=== PATIENT | male | born 1990 | race Caucasian/White ===

== ENCOUNTER 2024-11-02 21:28 | Emergency (ER) | payer OTHER, SELFPAY ==
--- OUTSIDE RECORDS SUMMARY | 2024-11-02 21:31 | XMS_ITS | Clinical Summary ---
Author Organization [facility] Address [place], [place] [address] Care Team Providers Care Narrow Fabric Calenderer Name Role Phone Kenzie Rivera NP Primary Care Provider [phone] Allergies No known active allergies Medications lisinopril-hydr ochlorothiazide , 20-25 mg, (PRINZIDE, ZESTORETIC) 20-25 mg per tabletIndicatio ns:Hypertension Take 1 Tablet by mouth once daily. 90 Tablet 3 4 Active CPAPIndications :SHARAN (obstructive sleep apnea) CPAP machine for home use at pressure 5-20, choice of mask, lifetime length of need, daily use. 12/17/23 HST abbi 33.2 idania 58% borderline [facility] [place] please with YANIRA to follow about 2-3 weeks after start 1 Each 4 Active Active Problems Problem Noted Date Diagnosed Date Premature ejaculation, lifelong, generalized, se elias 09/13/2015 Mild intermittent asthma without complication Hypertension 08/21/2015 Morbid obesity due to excess calories 08/21/2015 Resolved Problems Problem Noted Date Diagnosed Date Resolved Date Erectile dysfunction 08/21/2015 024 Encounters Date Type Department Care Team Description 08/03/2024 Refill [facility] [address] [place] [address] Arline Sawyer NP Refill Request from Last 3 Months Immunizations Name Administration Dates Next Due Influenza, IIV3 (Age >=3 years) 08/07/2006 MMR 08/01/2003 Td (Age >=7 Years) 08/01/2003 Family History Medical History Relation Name Comments Diabetes Father Hypertension Father Cancer Mother Lung Hypertension Mother Relation Name Status Comments Father Mother Social History Tobacco Use Types Packs/Day Years Used Date Smoking Tobacco: Never Smokeless Tobacco: Never Tobacco Cessation:Counseling Given: Yes Alcohol Use Standard Drinks/Week Comments Yes 0 (1 standard drink = 0.6 oz pur e alcohol) less then 1 drink per week PHQ-2 Answer Date Recorded PHQ-2 Score 2 12/20/2018 Social Connections Answer Date Recorded Frequency of Communication with Friends and Fami ly Not on file 08/19/2022 Financial Resource Strain Answer Date R ecorded Difficulty of Paying Living Expenses Not on file 10/20/2021 Difficulty of Paying Living Expenses Not on file 10/20/2021 Sex and Gender Information Value Date Recorded Sex Assigned at Not on file Legal Sex Male 5:25 AM ROLLER STITCHER Gender Identity Not on file Sexual Orientation Not on file 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 Not on file Not on file Not on file Obstetrics History Last Filed Vital Signs Vital Sign Reading Time Taken Comments Blood Pressure 138/80 11/03/2023 1:01 PM ROLLER STITCHER Pulse 102 11/03/2023 1:01 PM ROLLER STITCHER Temperature 36.9 C (98.4 F) 10/23/2019 7:59 AM ROLLER STITCHER Respiratory Rate 16 11/03/2023 1:01 PM ROLLER STITCHER Oxygen Saturation 98% 11/03/2023 1:01 PM ROLLER STITCHER Inhaled Oxygen Concentration - - Weight 179.6 kg (396 lb) 11/03/2023 1:01 PM ROLLER STITCHER Height 185.4 cm (6' 1) 11/03/2023 1:01 PM ROLLER STITCHER Body Mass Index 52.25 11/03/2023 1:01 PM ROLLER STITCHER Plan of Treatment Health Maintenance Due Date Last Done Comments Tdap 2002 HIV for age 15-65 2006 Hepatitis C screening for age 18-79 2009 Tetanus booster 08/01/2013 08/01/2003 Depression screening for age 12+ 02/09/2019 02/09/2018, 06/21/2016 COVID-19 vaccine series ( season) 2024 03/08/2021, 02/08/2021 Influenza for age 9-49 06/20/2024 08/07/2006 BMI (ht and wt on same day) for age 18+ 11/03/2024 11/03/2023, 08/19/2022, 10/23/2019, Additional history exists Pneumococcal series for age 6-49 Aged Out No longer eligible based on patient's age to complete this topic Insurance [employer] Care Teams [employer] Calenderer Relationship Specialty Start Date End Date Kenzie Rivera NP [address] [place] [id number] PCP - General Nurse Practitioner - Family 11/03/23
[2024-11-02 21:43] VITALS: BP 185/90; PULSE 89; RESP 18; TEMP 36.6; O2SAT 99; BMI 46.2
--- NOTE | 2024-11-02 21:46 | CRLHL7_ITS ---
For Patients: As a result of the Century Cures Act, medical imaging exams and procedure reports are released immediately into your electronic medical record. You may view this report before your referring provider. If you have questions, please contact your health care provider. INDICATION: Flank pain, vomiting. TECHNIQUE: CT abdomen and pelvis without contrast. COMPARISON: None. FINDINGS: Lower chest: Unremarkable. Liver: Hepatic steatosis. Gallbladder and bile ducts: No stones or inflammation. No biliary ductal dilatation. Spleen: Normal in size. Adrenal glands: Normal in size. No nodules. Pancreas: No inflammation. Kidneys: 8 mm calculus in the distal left ureter. Moderate left hydroureteronephrosis. Mild left periureteric stranding. 2 mm nonobstructive left renal calculus. Right renal cysts. GI tract: Normal in caliber. No evidence of obstruction. Normal appendix. Lymph nodes: No lymphadenopathy. Vasculature: Abdominal aorta is normal in caliber. Abdominal wall/Omentum/Peritoneum: Unremarkable. No free air or significant free fluid. Pelvis: Unremarkable. Bones: Degenerative changes. IMPRESSION: 1. 8 mm distal left ureteral calculus with moderate upstream hydroureteronephrosis. 2. Mild left periureteric stranding, nonspecific. Recommend correlation with urinalysis to evaluate for ascending urinary tract infection. 3. 2 mm left nonobstructive nephrolithiasis. 4. Hepatic steatosis. Please note that all CT scans at this facility use dose modulation, iterative reconstruction, and/or weight-based dosing when appropriate to reduce radiation dose to as low as reasonably achievable. Dictated by Ryan Sidhu MD @ 11/02/2024 10:55:11 PM (Electronically Signed)
[2024-11-02 21:50] LABS: Appearance Urine Clear (Clear); Bilirubin Urine Negative (Negative); Blood Urine 3+ (Negative); Color Urine Yellow (Yellow); Glucose Urine Negative (Negative); Ketones Urine Negative (Negative); Leukocyte Esterase Urine Negative (Negative); Nitrite Urine Negative (Negative); Protein Urine 2+ (Negative); Specific Gravity Urine >= 1.030 (1.000-1.030); pH Urine 6.5 (5.0-8.5)
--- NOTE | 2024-11-02 21:52 | ED.GENADULT ---
HPI - General Adult General Date Seen: 11/02/24 <Nicolas Fink MD - Last Filed: 11/14/24 15:50> Chief complaint: Flank Pain <Nicolas Fink MD - Last Filed: 11/14/24 15:50> Stated complaint: Left side flank pain, vomitting <Nicolas Fink MD - Last Filed: 11/14/24 15:50> Time Seen by Provider: 11/02/24 21:51 <Nicolas Fink MD - Last Filed: 11/14/24 15:50> History of Present Illness HPI narrative: Very pleasant 34-year-old gentleman presenting to the ER [facility] with his with concern for left flank pain and nausea. He is generally healthy except for elevated BMI. No regular medications. No medication allergies. He has no history of kidney stones or urinary problems. At about 7:00 p.m. [facility] while he was fixing dinner he began to feel some pain in his left low back/left flank. Initially fairly mild but then a little while later abruptly became much worse. It began to wrap around into his left lower quadrant along the left groin (but not into the left testicle). It became quite intense and made him nauseous. He had 1 episodes of nonbilious, nonbloody emesis. He became sweaty and dizzy because of the pain. He is not running a fever. No known trauma. No injury. No rash. No history of kidney stones. <Nicolas Fink MD - Last Filed: 11/14/24 15:50> Related Data Home medications: Home Medications ?Medication ?Instructions ?Recorded ?Confirmed No Known Home Medications 11/02/24 11/02/24 <Nicolas Fink MD - Last Filed: 11/14/24 15:50> Allergies/adverse reactions: Allergies Allergy/AdvReac Type Severity Reaction Status Date / Time No Known Drug Allergies Allergy Verified 11/02/24 21:45 <Nicolas Fink MD - Last Filed: 11/14/24 15:50> [facility] Medical History: Medical History (Updated 11/02/24 @ 23:59 by Hanna Arreola MD) HTN (hypertension) ?I10 - Essential (primary) hypertension (ICD-10) <Nicolas Fink MD - Last Filed: 11/14/24 15:50> Surgical History: Surgical History (Updated 11/02/24 @ 22:11 by Gene Meehan RN) No significant past surgical history <Nicolas Fink MD - Last Filed: 11/14/24 15:50> Social History: Social History Smoking Status: Never smoker Second hand tobacco smoke exposure: No How often do you have a drink containing alcohol: never AUDIT-C Alcohol total score: 0 Non-prescribed substance use: denies use <Nicolas Fink MD - Last Filed: 11/14/24 15:50> Exam Narrative: Exam Narrative: Constitutional: Appears well-developed and well-nourished. Alert. Conversant. Non toxic. HENT: Head: Atraumatic. Nose: Nose normal. Mouth/Throat: Oral mucosa is clear and moist. no trismus Eyes: Conjunctivae normal. EOM normal. Pupils equal, round, and reactive to light. No scleral icterus. Neck: Normal range of motion. Neck supple. No tracheal deviation present. Cardiovascular: Normal rate, regular rhythm. No gallop. No friction rub. No murmur heard. Pulmonary/Chest: Effort normal. No stridor. No respiratory distress. No wheezes. No rales. No rhonchi . No lower rib cage tenderness. Abdominal: Soft. Bowel sounds normal. No distension. No mass. Mild left lower quadrant and left lower CVA tenderness. No rash. No bruising No rebound. No guarding. No tenderness along the proximal thigh or inguinal ligament. Musculoskeletal: RUE: Normal range of motion. No tenderness. No deformity LUE: Normal range of motion. No tenderness. No deformity RLE: Normal range of motion. No edema. No tenderness. No deformity LLE: Normal range of motion. No edema. No tenderness. No deformity Neurological: Alert and oriented to person, place, and time. Normal strength. CN II-VII intact. No sensory deficit. GCS eye subscore is 4. GCS verbal subscore is 5. GCS motor subscore is 6. Normal coordination Skin: Skin is warm and dry. No rash noted. No pallor. Normal capillary refill. Psychiatric: Normal mood. Normal affect. <Nicolas Fink MD - Last Filed: 11/14/24 15:50> Const: Vital Signs, click to edit/add: Vital Signs - 24 hr 11/02/24 21:43 11/02/24 21:55 11/02/24 23:23 Temperature 97.8 F 97.8 F Pulse Rate [Right Pulse Oximeter] 89 Respiratory Rate 18 Blood Pressure [Le ft Upper Arm] 185/90 H Pulse Oximetry 99 99 Oxygen Delivery Me thod Room Air <Nicolas Fink MD - Last Filed: 11/14/24 15:50> Vital Signs, click to edit/add: Vital Signs - 24 hr 11/02/24 21:43 11/02/24 21:55 11/02/24 23:23 Temperature 97.8 F 97.8 F Pulse Rate [Right Pulse Oximeter] 89 Respiratory Rate 18 Blood Pressure [Le ft Upper Arm] 185/90 H Pulse Oximetry 99 99 Oxygen Delivery Me thod Room Air <Hanna Arreola MD - Last Filed: 11/03/24 00:00> Course Reevaluation(s) Time of Reevaluation #1: 22:16 <Hanna Arreola MD - Last Filed: 11/03/24 00:00> Reevaluation #1: Patient back from CT, pain has improved with Toradol. Note that he has hematuria on the UA, await CT imaging. <Hanna Arreola MD - Last Filed: 11/03/24 00:00> Time of Reevaluation #2: 23:07 <Hanna Arreola MD - Last Filed: 11/03/24 00:00> Reevaluation #2: Reviewed CT report with patient, unfortunately there is an 8 mm stone. We discussed that based on size, this is unlikely to pass on its own. He is comfortable right now with the IV Toradol. He will let us know if he is having increasing pain. We will contact facilities to see if we might be able to transfer him for definitive urologic treatment. <Hanna Arreola MD - Last Filed: 11/03/24 00:00> Time of Reevaluation #3: 23:52 <Hanna Arreola MD - Last Filed: 11/03/24 00:00> Reevaluation #3: Have reviewed with patient that there are no beds with Urology capacity in any of our surrounding institutions. His pain is returning mildly, will give him another 15 mg IV Toradol. Discussed options with him. They would like to try outpatient management and will follow up in clinic. I have discussed with him it may be extremely difficult to get into Urology in a timely fashion outpatient. I do not have Urology available here and they do understand that. Their insurance prefers [facility]. Will push his CT down to [facility] in case he does end up in their ER eventually. We did discuss signs and symptoms for return, certainly if he has a fever with active kidney stone not explained by other etiologies, this is a surgical emergency. He understands that this 8 mm stone is unlikely to pass on its own. Both of his parents have reportedly had kidney stones. He will be sent with some Toradol, Zofran, few tablets of oxycodone to follow up in clinic tomorrow for getting scheduled with Urology. Otherwise, if worsening or concerns, discussed proceeding to facility where there is Urology. We are always happy to help him here but we are likely to be in the same status conceivably at least short term. Have provided for tablets of oxycodone 5 mg, 20 tablets of Toradol and 10 tablets of Zofran 0DT from [place]. <Hanna Arreola MD - Last Filed: 11/03/24 00:00> Vital Signs Vital signs: Initial Vital Signs Temperature 97.8 F 11/02/24 21:43 Temperature Source Temporal Artery Scan 11/02/24 21:43 Pulse Rate 89 11/02/24 21:43 Respiratory Rate 18 11/02/24 21:43 Blood Pressure 185/90 H 11/02/24 21:43 Blood Pressure Mean 121 H 11/02/24 21:43 Blood Pressure Position Sitting 11/02/24 21:43 Pulse Oximetry 99 11/02/24 21:43 Oxygen Delivery Method Room Air 11/02/24 21:43 Vital Signs Temperature 97.8 F 11/02/24 21:43 Pulse Rate 89 11/02/24 21:43 Respiratory Rate 18 11/02/24 21:43 Blood Pressure 185/90 H 11/02/24 21:43 Pulse Oximetry 99 11/02/24 21:43 Oxygen Delivery Method Room Air 11/02/24 21:43 Temperature 97.8 F 11/03/24 00:04 Pulse Rate 85 11/03/24 00:04 Respiratory Rate 18 11/03/24 00:04 Blood Pressure 165/80 H 11/03/24 00:04 Pulse Oximetry 99 11/03/24 00:03 Oxygen Delivery Method Room Air 11/03/24 00:03 <Nicolas Fink MD - Last Filed: 11/14/24 15:50> Initial Vital Signs Temperature 97.8 F 11/02/24 21:43 Temperature Source Temporal Artery Scan 11/02/24 21:43 Pulse Rate 89 11/02/24 21:43 Respiratory Rate 18 11/02/24 21:43 Blood Pressure 185/90 H 11/02/24 21:43 Blood Pressure Mean 121 H 11/02/24 21:43 Blood Pressure Position Sitting 11/02/24 21:43 Pulse Oximetry 99 11/02/24 21:43 Oxygen Delivery Method Room Air 11/02/24 21:43 Vital Signs Temperature 97.8 F 11/02/24 21:43 Pulse Rate 89 11/02/24 21:43 Respiratory Rate 18 11/02/24 21:43 Blood Pressure 185/90 H 11/02/24 21:43 Pulse Oximetry 99 11/02/24 21:43 Oxygen Delivery Method Room Air 11/02/24 21:43 Temperature 97.8 F 11/03/24 00:04 Pulse Rate 85 11/03/24 00:04 Respiratory Rate 18 11/03/24 00:04 Blood Pressure 165/80 H 11/03/24 00:04 Pulse Oximetry 99 11/03/24 00:03 Oxygen Delivery Method Room Air 11/03/24 00:03 <Hanna Arreola MD - Last Filed: 11/03/24 00:00> Medications Administered Medications: Discontinued Medications Generic Name Dose Route Start Last Admin Trade Name Freq PRN Reason Stop Dose Admin Sodium Chloride 500 mls @ 500 mls/hr 11/02/24 21:46 11/02/24 23:23 0.9 % Sodium Chloride 500 Ml IV 11/02/24 22:45 Infused .Q1H ONE Infusion Ketorolac Tromethamine 15 mg 11/02/24 21:46 11/02/24 21:56 Ketorolac 15 Mg/Ml Inj IVP 11/02/24 21:47 15 mg ONCE ONE Administration Ketorolac Tromethamine 15 mg 11/02/24 23:52 11/02/24 23:56 Ketorolac 15 Mg/Ml Inj IVP 11/02/24 23:53 15 mg ONCE ONE Administration Ondansetron HCl 4 mg 11/02/24 21:46 11/02/24 21:57 Ondansetron 2 Mg/Ml Inj IVP 11/02/24 21:47 4 mg ONCE ONE Administration <Nicolas Fink MD - Last Filed: 11/14/24 15:50> Discontinued Medications Generic Name Dose Route Start Last Admin Trade Name Anton PRN Reason Stop Dose Admin Sodium Chloride 500 mls @ 500 mls/hr 11/02/24 21:46 11/02/24 23:23 0.9 % Sodium Chloride 500 Ml IV 11/02/24 22:45 Infused .Q1H ONE Infusion Ketorolac Tromethamine 15 mg 11/02/24 21:46 11/02/24 21:56 Ketorolac 15 Mg/Ml Inj IVP 11/02/24 21:47 15 mg ONCE ONE Administration Ketorolac Tromethamine 15 mg 11/02/24 23:52 11/02/24 23:56 Ketorolac 15 Mg/Ml Inj IVP 11/02/24 23:53 15 mg ONCE ONE Administration Ondansetron HCl 4 mg 11/02/24 21:46 11/02/24 21:57 Ondansetron 2 Mg/Ml Inj IVP 11/02/24 21:47 4 mg ONCE ONE Administration <Hanna Arreola MD - Last Filed: 11/03/24 00:00> Medical Decision Making [facility] Narrative Medical decision making narrative: This patient presents with left flank and left lower quadrant flank pain that began fairly abruptly this evening while he was fixing dinner.. Differential Diagnosis considered includes: Ureterolithiasis, UTI, pyelonephritis, AAA, colitis, diverticulitis, volvulus, appendicitis, among others. I have ordered labs and imaging. Discussed with my partner Dr. Nur. she will follow-up on the test results. <Nicolas Fink MD - Last Filed: 11/14/24 15:50> Lab Data Lab results reviewed: Yes I reviewed the patient's lab results <Hanna Arreola MD - Last Filed: 11/03/24 00:00> Labs: Lab Results 11/02/24 11/02/24 Range/Units 21:40 22:05 WBC 10.18 (4.50-11.00) K/uL RBC 5.24 (4.30-5.90) m/uL Hgb 14.4 (13.5-17.5) gm/dL Hct 45.4 (37.0-53.0) % MCV 87 (80-100) fL MCH 28 (26-34) pg MCHC 32 (32-36) gm/dL RDW Coeff of Rik 13.1 (11.5-15.5) % Plt Count 231 (140-440) K/uL Neut % (Auto) 72.3 H (42.0-72.0) % Lymph % (Auto) 15.1 L (20-44) % [place] % (Auto) 9.5 (0.0-11.0) % Eos % (Auto) 2.4 (0.0-7.0) % Baso % (Auto) 0.4 (0.0-3.0) % Neut # (Auto) 7.40 H (1.7-7.0) K/uL Lymph # (Auto) 1.50 (0.90-2.90) K/uL [place] # (Auto) 1.00 H (0.00-0.90) K/UL Eos # (Auto) 0.24 (0.00-0.50) K/uL Baso # (Auto) 0.04 (0.00-0.30) K/uL Abs Immat Gran (auto) 0.03 (0.00-0.30) K/uL Imm/Tot Granulo (auto) 0.3 % Sodium 138 (135-149) mmol/L Potassium 3.6 (3.6-5.1) mmol/L Chloride 103 (96-114) mmol/L Carbon Dioxide 27 (20-32) mmol/L Anion Gap 8 (7-15) mEq/L BUN 17 (5-24) mg/dL Creatinine 1.0 (0.5-1.5) mg/dL Estimated Creat Clear 118.74 Estimated GFR 102 ml/min Glucose 182 H (60-115) mg/dL Calcium 8.7 (8.4-10.6) mg/dL Lipase 143 (23-300) U/L Urine Color Yellow (Yellow) Urine Appearance Clear (Clear) Urine pH 6.5 (5.0-8.5) Ur Specific [place] >= 1.030 (1.000-1.030) Urine Protein 2+ A (Negative) Urine Glucose (UA) Negative (Negative) Urine Ketones Negative (Negative) Urine Blood 3+ A (Negative) Urine Nitrite Negative (Negative) Urine Bilirubin Negative (Negative) Urine Urobilinogen 1.0 (0.2-1.0) Ur Leukocyte Esterase Negative (Negative) Urine RBC 10-25 A (0-2) Urine WBC 5-10 A (0-5) Ur Squamous Epith Cells Few (None-Few) Calcium Oxalate Crystal Few A (None) Urine Bacteria Few A (None) <Nicolas Fink MD - Last Filed: 11/14/24 15:50> Lab Results 11/02/24 11/02/24 Range/Units 21:40 22:05 WBC 10.18 (4.50-11.00) K/uL RBC 5.24 (4.30-5.90) m/uL Hgb 14.4 (13.5-17.5) gm/dL Hct 45.4 (37.0-53.0) % MCV 87 (80-100) fL MCH 28 (26-34) pg MCHC 32 (32-36) gm/dL RDW Coeff of Rik 13.1 (11.5-15.5) % Plt Count 231 (140-440) K/uL Neut % (Auto) 72.3 H (42.0-72.0) % Lymph % (Auto) 15.1 L (20-44) % [place] % (Auto) 9.5 (0.0-11.0) % Eos % (Auto) 2.4 (0.0-7.0) % Baso % (Auto) 0.4 (0.0-3.0) % Neut # (Auto) 7.40 H (1.7-7.0) K/uL Lymph # (Auto) 1.50 (0.90-2.90) K/uL [place] # (Auto) 1.00 H (0.00-0.90) K/UL Eos # (Auto) 0.24 (0.00-0.50) K/uL Baso # (Auto) 0.04 (0.00-0.30) K/uL Abs Immat Gran (auto) 0.03 (0.00-0.30) K/uL Imm/Tot Granulo (auto) 0.3 % Sodium 138 (135-149) mmol/L Potassium 3.6 (3.6-5.1) mmol/L Chloride 103 (96-114) mmol/L Carbon Dioxide 27 (20-32) mmol/L Anion Gap 8 (7-15) mEq/L BUN 17 (5-24) mg/dL Creatinine 1.0 (0.5-1.5) mg/dL Estimated Creat Clear 118.74 Estimated GFR 102 ml/min Glucose 182 H (60-115) mg/dL Calcium 8.7 (8.4-10.6) mg/dL Lipase 143 (23-300) U/L Urine Color Yellow (Yellow) Urine Appearance Clear (Clear) Urine pH 6.5 (5.0-8.5) Ur Specific [place] >= 1.030 (1.000-1.030) Urine Protein 2+ A (Negative) Urine Glucose (UA) Negative (Negative) Urine Ketones Negative (Negative) Urine Blood 3+ A (Negative) Urine Nitrite Negative (Negative) Urine Bilirubin Negative (Negative) Urine Urobilinogen 1.0 (0.2-1.0) Ur Leukocyte Esterase Negative (Negative) Urine RBC 10-25 A (0-2) Urine WBC 5-10 A (0-5) Ur Squamous Epith Cells Few (None-Few) Calcium Oxalate Crystal Few A (None) Urine Bacteria Few A (None) <Hanna Arreola MD - Last Filed: 11/03/24 00:00> Imaging Data CT scan - abdomen: Attestation: I have reviewed the pertinent imaging results. <Hanna Arreola MD - Last Filed: 11/03/24 00:00> Radiologist's impression: Patient: NAINA RONQUILLO Facility:?[facility] Patient ID:?[id number] Site Patient ID:?[id number]. Site :?[id number] Study:?CT-Abdomen/Pelvis W/O-11/02/2024 10:13:58 PM Ordering Physician:Karissa Valenzuela Final Report: INDICATION: Flank pain, vomiting. TECHNIQUE: CT abdomen and pelvis without contrast. COMPARISON: None. FINDINGS: Lower chest: Unremarkable. Liver: Hepatic steatosis. Gallbladder and bile ducts: No stones or inflammation. No biliary ductal dilatation. Spleen: Normal in size. Adrenal glands: Normal in size. No nodules. Pancreas: No inflammation. Kidneys: 8 mm calculus in the distal left ureter. Moderate left hydroureteronephrosis. Mild left periureteric stranding. 2 mm nonobstructive left renal calculus. Right renal cysts. GI tract: Normal in caliber. No evidence of obstruction. Normal appendix. Lymph nodes: No lymphadenopathy. Vasculature: Abdominal aorta is normal in caliber. Abdominal wall/Omentum/Peritoneum: Unremarkable. No free air or significant free fluid. Pelvis: Unremarkable. Bones: Degenerative changes. IMPRESSION: 1. 8 mm distal left ureteral calculus with moderate upstream hydroureteronephrosis. 2. Mild left periureteric stranding, nonspecific. Recommend correlation with urinalysis to evaluate for ascending urinary tract infection. 3. 2 mm left nonobstructive nephrolithiasis. 4. Hepatic steatosis. Please note that all CT scans at this facility use dose modulation, iterative reconstruction, and/or weight-based dosing when appropriate to reduce radiation dose to as low as reasonably achievable. Dictated by Ryan Sidhu MD @ 11/02/2024 10:55:11 PM (Electronic Signature) <Hanna Arreola MD - Last Filed: 11/03/24 00:00> Discharge Plan Discharge Clinical Impression: Renal colic on left side, Urinary tract obstruction due to kidney stone <Nicolas Fink MD - Last Filed: 11/14/24 15:50> Patient Disposition: Home, Self-Care <Nicolas Fink MD - Last Filed: 11/14/24 15:50> Condition: Stable <Nicolas Fink MD - Last Filed: 11/14/24 15:50> Instructions: Kidney Stones (ED), Renal Colic (ED) <Nicolas Fink MD - Last Filed: 11/14/24 15:50> Additional Instructions: Can try Tylenol 1000 mg 3 times a day baseline for pain. Use the Toradol as next here for pain. Have written for few tablets of oxycodone for severe pain. Use Zofran for nausea. Need to push fluids. You absolutely need to follow up in clinic tomorrow to get a Urology referral. If your pain is uncontrolled, developed fever not explained by other etiologies, have uncontrolled vomiting despite medications, need emergent re-evaluation. If the kidney stone does become infected, this is a surgical emergency and you will need to see urology emergently. <Nicolas Fink MD - Last Filed: 11/14/24 15:50> Activity Level: Activity as Tolerated <Nicolas Fink MD - Last Filed: 11/14/24 15:50> Activity as Tolerated <Hanna Arreola MD - Last Filed: 11/03/24 00:00> Prescriptions: No Action No Known Home Medications <Nicolas Fink MD - Last Filed: 11/14/24 15:50> Follow Up/Referrals: Provider,Not a Local [Primary Care Provider] - <Nicolas Fink MD - Last Filed: 11/14/24 15:50> Stand Alone Forms: [employer] Info Instructions <Nicolas Fink MD - Last Filed: 11/14/24 15:50>
[2024-11-02 21:55] VITALS: O2SAT 99
[2024-11-02] MEDS: KETOROLAC 15 MG/ML inj IVP ×2 (21:56→23:56)
[2024-11-02] MEDS: 0.9 % SODIUM CHLORIDE 500 ML 500 ML IV (21:57)
[2024-11-02] MEDS: ONDANSETRON 2 MG/ML inj 4 MG IVP (21:57)
[2024-11-02 22:10] LABS: Basophils Absolute Auto 0.04 K/uL (0.00-0.30); Basophils Percent Auto 0.4 % (0.0-3.0); Eosinophils Absolute Auto 0.24 K/uL (0.00-0.50); Eosinophils Percent Auto 2.4 % (0.0-7.0); Hematocrit 45.4 % (37.0-53.0); Hemoglobin* 14.4 gm/dL (13.5-17.5); Immature Granulocytes Abs Auto 0.03 K/uL (0.00-0.30); Immature Granulocytes Pct Auto 0.3 %; Lymphocytes Percent Auto 15.1 % (20-44); Mean Corpuscular HGB Conc 32 gm/dL (32-36); Mean Corpuscular Hemoglobin 28 pg (26-34); Mean Corpuscular Volume 87 fL (80-100); Monocytes Percent Auto 9.5 % (0.0-11.0); Neutrophils Percent Auto 72.3 % (42.0-72.0); Platelet Count* 231 K/uL (140-440); RDW Coefficient of Variation % 13.1 % (11.5-15.5); Red Blood Count 5.24 m/uL (4.30-5.90); White Blood Count* 10.18 K/uL (4.50-11.00)
[2024-11-02 22:12] LABS: Slide Review Reflex No
[2024-11-02 22:15] LABS: Bacteria Urine Few; Squamous Epithelial Cell Urine Few (None-Few)
[2024-11-02 22:16] LABS: Calcium Oxalate Crystals Urine Few
[2024-11-02 22:23] LABS: Chloride* 103 mmol/L (96-114); Potassium* 3.6 mmol/L (3.6-5.1); Sodium* 138 mmol/L (135-149)
[2024-11-02 22:26] LABS: Anion Gap 8 mEq/L (7-15); Carbon Dioxide* 27 mmol/L (20-32); Est. Creatinine Clearance* 118.74; Estimated Glomerular Filt Rate 102 ml/min; Lipase* 143 U/L (23-300)
[2024-11-02 22:27] LABS: Blood Urea Nitrogen* 17 mg/dL (5-24); Calcium* 8.7 mg/dL (8.4-10.6); Glucose* 182 mg/dL (60-115)
--- OUTSIDE RECORDS SUMMARY | 2024-11-02 22:35 | XMS_ITS | Clinical Summary ---
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 on file Not on file Not on file Obstetrics History Last Filed Vital Signs Vital Sign Reading Time Taken Comments Blood Pressure 138/80 11/03/2023 1:01 PM HYDRAULIC ASSEMBLER Pulse 102 11/03/2023 1:01 PM HYDRAULIC ASSEMBLER Temperature 36.9 C (98.4 F) 10/23/2019 7:59 AM HYDRAULIC ASSEMBLER Respiratory Rate 16 11/03/2023 1:01 PM HYDRAULIC ASSEMBLER Oxygen Saturation 98% 11/03/2023 1:01 PM HYDRAULIC ASSEMBLER Inhaled Oxygen Concentration - - Weight 179.6 kg (396 lb) 11/03/2023 1:01 PM HYDRAULIC ASSEMBLER Height 185.4 cm (6' 1) 11/03/2023 1:01 PM HYDRAULIC ASSEMBLER Body Mass Index 52.25 11/03/2023 1:01 PM HYDRAULIC ASSEMBLER Plan of Treatment Health Maintenance Due Date [...] this topic Insurance [employer] Care Teams Field Coil Winder Relationship Specialty Start Date End Date Kenzie Rivera NP [address] [place] [phone] PCP - General Nurse Practitioner - Family 11/03/23
[2024-11-02 23:23] VITALS: TEMP 36.6
[2024-11-02 23:56] VITALS: TEMP 36.6
[2024-11-03 00:03] VITALS: BP 165/80; PULSE 85; RESP 18; TEMP 36.6; O2SAT 99
[2024-11-03 00:04] VITALS: BP 165/80; PULSE 85; RESP 18; TEMP 36.6
== END 2024-11-03 00:12 | disposition home or self-care (01) ==
PROVIDERS: Emergency Medicine; Emergency Provider Family Medicine
DX: N23 Unspecified renal colic (principal); N20.0 Calculus of kidney
CPT/HCPCS: 36415; 74176; 80048; 80053; 81001; 81003; 83690; 85025; 87086; 94761; 96374; 96375; 96376; 99283; 99284; J1885; J2405; J7030

== ENCOUNTER 2024-12-07 20:39 | Emergency (ER) | payer OTHER, SELFPAY ==
[2024-12-07] VITALS (10 sets, daily range): BP systolic 179–197; BP diastolic 95–109; PULSE 67–82; RESP 20; TEMP 36.7; O2SAT 95–98
--- OUTSIDE RECORDS SUMMARY | 2024-12-07 20:41 | XMS_ITS | Encounter Summary ---
Author Organization [facility] Address [address] [place] [address] Care Team Providers Care Escalator Service Mechanic Name Role Phone Elsewhere, Pcp Primary Care Provider Unavailabl e Reason for Referral * Outpatient (Routine) - Closed Specialty Diagnoses / Procedures Referred By Sharif mathew Referred To Contact Urology Diagnoses Ureterolithiasis Reema Cedeno P.A.-C., M.S. [address] [place] [phone] Phone: tel: fax: [facility] Referral ID Status Reason Start Date Expiration Date Visits Re quested Visits Authorized [id number] Closed 11/03/2024 05/05/2026 1 1 E CONTROLLER Reason for Visit * Reason Comments Flank Pain Encounter Details Date Type Department Care Team (Late st Contact Info) Description 11/03/2024 10:27 AM GAUGE CONTROLLER - 11/03/2024 1:55 PM GAUGE CONTROLLER Emergency [facility] Emergency Department [address] [place] [phone] Reema Cedeno P.A.-C., M.S. [address] [place] [phone] Ureterolithiasis (Primary Dx) Discharge Disposition: Home or Self Care Social History Tobacco Use Types Packs/Day Years Used Date Smoking Tobacco: Never Tobacco Cessation:Counseling Given: Not Answered Alcohol Use Standard Drinks/Week Comments Not Currently 0 (1 standard drink = 0.6 oz pur e alcohol) Dental Answer Date Recorded Dental: Regular Dentist Unknown 11/03/19 Sex and Gender Information Value Date Recorded Sex Assigned at Male 11/21/2024 8:18 PM GAUGE CONTROLLER Legal Sex Male 10:27 AM GAUGE CONTROLLER Gender Identity Male 11/21/2024 8:18 PM GAUGE CONTROLLER Sexual Orientation Straight 11/21/2024 8: 18 PM GAUGE CONTROLLER documented as of this encounter Last Filed Vital Signs Vital Sign Reading Time Taken Comments Blood Pressure 165/97 11/03/2024 1:45 PM GAUGE CONTROLLER Pulse 73 11/03/2024 1:45 PM GAUGE CONTROLLER Temperature 36.8 C (98.2 F) 11/03/2024 10:36 AM GAUGE CONTROLLER Respiratory Rate 20 11/03/2024 10:36 AM GAUGE CONTROLLER Oxygen Saturation 98% 11/03/2024 1:45 PM GAUGE CONTROLLER Inhaled Oxygen Concentration - - Weight 192 kg (423 lb 15.1 oz) 11/03/2024 10:29 AM GAUGE CONTROLLER Height - - Body Mass Index - - documented in this encounter Discharge Instructions * Discharge Instructions* Reema Cedeno P.A.-C., M.S. - 11/03/2024 1:45 PM GAUGE CONTROLLER You have a 7-8 mm stone. Please take Flomax to help pass the stone. You can continue to use Tylenol and Toradol as needed for pain. Use oxycodone as needed for breakthrough pain. Follow-up with Urology. They should contact you to schedule an appointment. Return to the ER if you have any new or worsening symptoms including severe pain, inability to urinate, fever, or persistent vomiting. E CONTROLLER documented in this encounter Medications at Time of Discharge ketorolac (ToradoL) 10 mg tablet Take 10 mg by mouth every 4 (four) hours as needed for pain. lisinopril-hydroC HLOROthiazide 20-25 mg per tablet Take 1 tablet by mouth daily. 11/03/2023 oxyCODONE (Oxy IR) 5 mg immediate release capsule Take 5 mg by mouth every 4 (four) hours as needed for pain. tamsulosin (Flomax) 0.4 mg 24 hr capsule Take 1 capsule (0.4 mg total) by mouth daily. 30 capsule 11/03/2024 12/03/2024 documented as of this encounter ED Notes * Reema Cedeno P.A.-C., M.S. - 11/03/2024 11:41 AM CST SUBJECTIVE CHIEF COMPLAINT/REASON FOR VISIT Flank Pain HISTORY OF PRESENT ILLNESS Darren Ashley is a 34 y.o. male with a PMH including hypertension who presents to the ED for flank pain. He was evaluated in an outside Emergency Department yesterday for concern of left flank and left lower quadrant pain. He reports they discovered an 8 mm left-sided ureteral stone. He states the provider there raised concern he would need urologic consultation and 1 option would be to await outpatient appointment while another option would be to present to an emergency department with urologyservices available. He was provided with oral Toradol and oxycodone. He has been using Toradol at home with improvement in his pain. He rates his pain as a 1 or 2/10 on my initial assessment. Pain isin the left lower abdomen. He denies any fever or chills. He did have nausea and 1 episode of nonbloody nonbilious emesis yesterday with severe pain, but has not had anything persistently. He denies any shortness of breath or chest discomfort. No change in bowel movements. He denies dysuria, urinary frequency, and hematuria. He reports both of his parents have had kidney stones in the past. He overall is feeling significantly improved compared to yesterday. History provided by: Patient and medical records REVIEW OF SYSTEMS See HPI OBJECTIVE Initial Vitals Temperature 11/03/24 1036 36.8 ??C Pulse Rate 11/03/24 1036 76 Heart Rate -- Resp Rate 11/03/24 1036 20 Blood Pressure 11/03/24 1040 (!) 149/99 SpO2 11/03/24 1036 97 % Pain Score 11/03/24 1123 2 PHYSICAL EXAMINATION Constitutional: Nursing note and vitals reviewed. He is sitting in bed. Nontoxic appearing, no apparent distress. HENT: Head: Normocephalic and atraumatic. Eyes: Conjunctivae are normal. Cardiovascular: Normal rate, regular rhythm and normal heart sounds. Capillary refill: takes less than 3 seconds Radial pulses 2+ bilaterally. Pulmonary/Chest: Effort normal and breath sounds normal. No tachypnea. Abdominal: Soft. exhibits no distension. There is abdominal tenderness (LLQ). There is CVA tenderness (left). There is no rebound and no guarding. Neurological: Alert and oriented to person, place, and time. Moving all 4 extremities equally. Skin: Skin is warm, dry and intact. He is not diaphoretic. Psychiatric: He has a normal mood and affect. ASSESSMENT/PLAN Assessment and Plan Patient presents to the Emergency Department for known left ureteral stone with concern he requiresurologic consultation. He overall feels significantly improved compared to his initial evaluation at outside Emergency Department yesterday. He is afebrile and hemodynamically stable on arrival. CT abdomen pelvis without contrast was obtained in the waiting room and demonstrates 7 mm distal left ureteral stone without significant hydronephrosis. We will await blood work and urinalysis to evaluatefor ARCHANA or UTI. He declines pain medication at this time. Further management pending ED course. ED Course as of 11/03/241808Nov 03, [address] Abdomen Pelvis without IV Contrast 1. 7 mm calculus in the distal left ureter without significant hydronephrosis. 2. Additional tiny nonobstructive left upper pole calyceal tip calculus. 1209 Hemoglobin: 14.8 No anemia 1209 Leukocytes: 9.3 No leukocytosis 1209 Creatinine: 0.96 Normal renal function 1209 Lactate: 1.9 Normal 1332 Hemoglobin, QL(!): Small 1332 Leukocyte Esterase: Negative 1332 Nitrite, U: Negative 1332 RBC(!): 31-40 1332 WBC: 1-3 Not consistent with UTI 1347 Patient resting comfortably on reassessment. I did briefly discuss with Urology who agrees with plan for referral for outpatient urology follow-up. No need for intervention today given no ARCHANA, persistent pain, or evidence of infection. Considering reassuring workup I feel it is reasonable to discharge him home. He was given a prescription for Flomax. He should return to the Emergency Department if he has any new or worsening symptoms including severe pain, urinary retention, fever, or persistent vomiting. The evaluation, plan, and return precautions were discussed with the patient who expressed understanding and is in agreement. Final Diagnoses: as of 11/03/241808 Ureterolithiasis My CT Scan interpretation is documented in ED Course. I discussed the management of the patient with: Urology. Reema Cedeno P.A.-C., M.S. 11/03/241808 E CONTROLLER * Dionicio Garner R.N. - 11/03/2024 10:36 AM CST Patient presents to the ER with pain in the left flank and left lower abdomin. He states that he went to [facility] ER last night where they found an 8 mm stone in the left kidney. They consulted their Urology department and told if pain gets worse go to an ER again. Dionicio Garner R.N. 11/03/24 1040 E CONTROLLER documented in this encounter Plan of Treatment Upcoming Encounters Date Type Department Care Team (Latest Contact Info) Description 12/17/2024 3:40 PM GAUGE CONTROLLER Appointment Department of Laboratory Medicine in [address] [phone] Cb Saucedo M.D., M.P.H. [address] [place] [phone] 12/20/2024 1:00 PM GAUGE CONTROLLER Appointment Department of Radiology in [address] [phone] Cb Saucedo M.D., M.P.H. [address] [place] [phone] Discharge Disposition: Home or Self Care 12/28/2024 3:00 PM CDT Clinical Communication Virtual Review in [place], [place] 200 [place] [phone] 12/29/2024 10:45 AM CDT Comprehensive Visit Preoperative Evaluation Center in [place], [place] [address] [place] [phone] Cb Saucedo M.D., M.P.H. [address] [place] [phone] 12/30/2024 10:44 AM CDT Hospital Encounter Outpatient Procedure Center in [place], [place] [address] [place] [phone] Shlomo Bradshaw M.D., M.S. [address] [place] [phone] 12/30/2024 10:44 AM CDT - 12/30/2024 12:29 PM CDT Surgery Outpatient Procedure Center in [place], [place] [address] [place] [phone] Shlomo Bradshaw M.D., M.S. [address] [place] [phone] URETEROSCOPY WITH LASER LITHOTRIPSY, possible multiple trips to the operating room in 90 days, proceed as indicated Scheduled Procedures Name Priority Associated Diagnoses Date/Ti me URETEROSCOPY WITH LASER LITHOTRIPSY Ureterolithiasis 12/30/2024 10:44 AM CDT STENT PLACEMENT - INTERNAL Ureterolithiasis 12/30/2024 10:44 AM CDT Scheduled Referrals Name Type Priority Associated Diagnoses Orde r Schedule POST ED VISIT Urology Outpatient Referral Routine Ureterolithiasis Expected: 11/10/2024, Expires: 02/01/2026 documented as of this encounter Procedures Procedure Name Priority Date/Time Associated Diagnosis Comments CBC WITH DIFFERENTIAL, B STAT 11/03/2024 11:39 AM GAUGE CONTROLLER LACTATE, B/P STAT 11/03/2024 11:39 AM GAUGE CONTROLLER BASIC METABOLIC PANEL, S/P STAT 11/03/2024 11:39 AM GAUGE CONTROLLER HC URINALYSIS AUTO WO MICRO Routine 11/03/2024 11:31 AM GAUGE CONTROLLER DIPSTICK, U STAT 11/03/2024 11:28 AM GAUGE CONTROLLER MICROSCOPIC AUTOMATED STAT 11/03/2024 11:28 AM GAUGE CONTROLLER BACTERIAL CULTURE, AEROBIC + SUSC, URINE STAT 11/03/2024 11:28 AM GAUGE CONTROLLER PH, U STAT 11/03/2024 11:28 AM GAUGE CONTROLLER OSMOLALITY, U STAT 11/03/2024 11:28 AM GAUGE CONTROLLER URINALYSIS WITH MICROSCOPIC STAT 11/03/2024 11:[address] ABDOMEN PELVIS WITHOUT IV CONTRAST RAD - Semiurgent (Fast; most ED patients; some inpatients) 11/03/2024 11:10 AM GAUGE CONTROLLER documented in this encounter Results * Lactate (11/03/2024 11:39 AM GAUGE CONTROLLER) Lactate, P 1.9 0.5 - 2.2 mmol/L 11/03/2024 11:57 AM GAUGE CONTROLLER STMA Blood (Blood, Venous) 11/03/2024 11:39 AM GAUGE CONTROLLER 11/03/2024 11:45 AM GAUGE CONTROLLER Jazlyn Bhakta P.A.-C. LAB BLOOD NON ADD-ON Kimberly l Result [facility] [address] [place] [address], [place] [facility] [address] [place] [address] * (ABNORMAL) Basic Metabolic Panel (11/03/2024 11:39 AM GAUGE CONTROLLER) Potassium, P 3.5(L) 3.6 - 5.2 mmol/L 11/03/2024 12:01 PM GAUGE CONTROLLER STMA Sodium, P 141 135 - 145 mmol/L 11/03/2024 12:01 PM GAUGE CONTROLLER STMA Chloride, P 103 98 - 107 mmol/L 11/03/2024 12:01 PM GAUGE CONTROLLER STMA Bicarbonate, P 28 22 - 29 mmol/L 11/03/2024 12:01 PM GAUGE CONTROLLER STMA Anion Gap, P 10 7 - 15 11/03/2024 12:01 PM GAUGE CONTROLLER STMA BUN (Blood Urea Nitrogen), P 11 8 - 24 mg/dL 11/03/2024 12:01 PM GAUGE CONTROLLER STMA Creatinine 0.96 0.74 - 1.35 mg/dL 11/03/2024 12:01 PM GAUGE CONTROLLER STMA Estimated GFR (eGFR) >90 >=60 mL/min/BSA 11/03/2024 12:01 PM GAUGE CONTROLLER STMA Comment: Estimated GFR calculated using the 2020 CKD_EPI creatinine equation. Calcium, Total, P 9.2 8.6 - 10.0 mg/dL 11/03/2024 12:01 PM GAUGE CONTROLLER STMA Glucose, P 157(H) 70 - 140 mg/dL 11/03/2024 12:01 PM GAUGE CONTROLLER STMA Blood (Blood, Venous) 11/03/2024 11:39 AM GAUGE CONTROLLER 11/03/2024 11:45 AM GAUGE CONTROLLER Jazlyn Bhakta P.A.-C. LAB BLOOD ADD-ON Final Re sult [facility] [address] [place] [address], [facility] [address] [place] [address] * (ABNORMAL) CBC with Differential, Blood (11/03/2024 11:39 AM GAUGE CONTROLLER) Hemoglobin 14.8 13.2 - 16.6 g/dL 11/03/2024 11:47 AM GAUGE CONTROLLER STMA Hematocrit 47.4 38.3 - 48.6 % 11/03/2024 11:47 AM GAUGE CONTROLLER STMA Erythrocytes 5.40 4.35 - 5.65 x10(12)/L 11/03/2024 11:47 AM GAUGE CONTROLLER STMA MCV 87.8 78.2 - 97.9 fL 11/03/2024 11:47 AM GAUGE CONTROLLER STMA RBC Distrib Width 13.2 11.8 - 14.5 % 11/03/2024 11:47 AM GAUGE CONTROLLER STMA Platelet Count 239 135 - 317 x10(9)/L 11/03/2024 11:47 AM GAUGE CONTROLLER STMA Leukocytes 9.3 3.4 - 9.6 x10(9)/L 11/03/2024 11:47 AM GAUGE CONTROLLER STMA Neutrophils 6.01 1.56 - 6.45 x10(9)/L 11/03/2024 11:47 AM GAUGE CONTROLLER PM Lymphocytes 2.06 0.95 - 3.07 x10(9)/L 11/03/2024 11:47 AM GAUGE CONTROLLER STMA Monocytes 0.92(H) 0.26 - 0.81 x10(9)/L 11/03/2024 11:47 AM GAUGE CONTROLLER STMA Eosinophils 0.25 0.03 - 0.48 x10(9)/L 11/03/2024 11:47 AM GAUGE CONTROLLER STMA Basophils 0.04 0.01 - 0.08 x10(9)/L 11/03/2024 11:47 AM GAUGE CONTROLLER STMA Blood (Blood, Venous) 11/03/2024 11:39 AM GAUGE CONTROLLER 11/03/2024 11:45 AM GAUGE CONTROLLER Jazlyn Bhakta P.A.-C. LAB BLOOD ADD-ON Final Re sult [facility] [address] [place] [address], [facility] STMA [facility] [address] [place], [place] [phone] [place] [address] [place] [address] * (ABNORMAL) Dipstick, POCT, Urine (11/03/2024 11:31 AM GAUGE CONTROLLER) Pathologist [facility] Glucose, POCT, U Negative Negative mg/dL 11/03/2024 11:33 AM GAUGE CONTROLLER PCED Ketone, POCT, U Negative Negative mg/dL 11/03/2024 11:33 AM GAUGE CONTROLLER PCED Specific Casey, POCT, U 1.025 1.005 - 1.030 11/03/2024 11:33 AM GAUGE CONTROLLER PCED Blood, POCT, U Moderate(A) Negative 11/03/2024 11:33 AM GAUGE CONTROLLER PCED pH, POCT, Urine 6.0 5.0 - 8.0 11/03/2024 11:33 AM GAUGE CONTROLLER PCED Protein, POCT, U Trace(A) Negative mg/dL 11/03/2024 11:33 AM GAUGE CONTROLLER PCED Nitrites, POCT, U Negative Negative 11/03/2024 11:33 AM GAUGE CONTROLLER PCED Leukocytes, POCT, U Negative Negative 11/03/2024 11:33 AM GAUGE CONTROLLER PCED Urine 11/03/2024 11:3 1 AM GAUGE CONTROLLER 11/03/2024 11:34 AM GAUGE CONTROLLER us Unknown Provider LAB POCT ORDERABLES - DEVICE Fi nal Result Performing Organization Address [facility] de Phone Number POC RST [facility] OUTPATIENT LABS 200 [place] [address], [facility] PCED [facility] 200 [place] [address] * (ABNORMAL) Dipstick, Urine (11/03/2024 11:28 AM GAUGE CONTROLLER) Hemoglobin, QL, U Small(A) Negative 11/03/2024 1:13 PM GAUGE CONTROLLER DTL Leukocyte Esterase, U Negative Negative 11/03/2024 1:13 PM GAUGE CONTROLLER DTL Nitrite, U Negative Negative 11/03/2024 1:13 PM GAUGE CONTROLLER DTL Ketone, U Negative Negative mg/dL 11/03/2024 1:13 PM GAUGE CONTROLLER DTL Glucose, U Negative Negative mg/dL 11/03/2024 1:13 PM GAUGE CONTROLLER DTL Urine 11/03/2024 11:2 8 AM GAUGE CONTROLLER 11/03/2024 12:58 PM GAUGE CONTROLLER us Jazlyn Bhakta P.A.-C. LAB URINE ORDERABLES Kimberly l Result Performing Organization Address [facility] Co de Phone Number [facility] [address] [place] [address], [facility] DTL [facility] 200 [place] [address] * Osmolality, Urine (11/03/2024 11:28 AM GAUGE CONTROLLER) Osmolality, U 579 150 - 1150 mOsm/kg 11/03/2024 2:06 PM GAUGE CONTROLLER DTL Urine 11/03/2024 11:2 8 AM GAUGE CONTROLLER 11/03/2024 12:58 PM GAUGE CONTROLLER Jazlyn Bhakta P.A.-C. LAB URINE ORDERABLES Kimberly l Result [facility] [address] [place] [address], [facility] 200 [place] [address] * pH, Urine (11/03/2024 11:28 AM GAUGE CONTROLLER) pH, U 5.6 4.5 - 8.0 11/03/2024 2:0 6 PM GAUGE CONTROLLER DTL Urine 11/03/2024 11:2 8 AM GAUGE CONTROLLER 11/03/2024 12:58 PM GAUGE CONTROLLER Jazlyn Bhakta P.A.-C. LAB URINE ORDERABLES Kimberly l Result Performing Organization Address City/[facility] Co de Phone Number [facility] [address] [place] [address], [facility] [address] [place] [address] * (ABNORMAL) Microscopic Automated (11/03/2024 11:28 AM GAUGE CONTROLLER) Microscopy Abnormal 11/03/2024 1:13 PM GAUGE CONTROLLER DTL RBC 31-40(A) <3 /hpf 11/03/2024 1:13 PM GAUGE CONTROLLER DTL Dysmorphic RBC <25 <25 % 11/03/2024 1:13 PM GAUGE CONTROLLER DTL WBC 1-3 /hpf 11/03/2024 1:13 PM GAUGE CONTROLLER DTL Comment: ----REFERENCE VALUE---- <4 (Males) <11 (Females) Urine 11/03/2024 11:2 8 AM GAUGE CONTROLLER 11/03/2024 12:58 PM GAUGE CONTROLLER Jazlyn Bhakta P.A.-C. LAB URINE ORDERABLES Kimberly l Result Performing Organization Address [facility] Co de Phone Number [facility] [address] [place] [address], [facility] 200 [place] [address] * Bacterial Culture, Aerobic + Susceptibility, Urine (11/03/2024 11:28 AM GAUGE CONTROLLER) Urine Culture Organism present <10,000 cfu/mL, susceptibilities not performed per laboratory criteria. 11/04/2024 11:08 AM GAUGE CONTROLLER DTL Urine (Urine, Straight Catheter) 11/03/2024 11:28 AM GAUGE CONTROLLER 11/03/2024 11:02 PM GAUGE CONTROLLER Comment:Specimen Source Site : Urine Jazlyn Bhakta P.A.-C. LAB MICROBIOLOGY - GENERA L ORDERABLES Final Result Performing Organization Address [facility] de Phone Number [facility] [address] [place] [address], [facility] [address] [place] [address] * Urinalysis, with Microscopic: Urine, Straight Catheter (11/03/2024 11:28 AM GAUGE CONTROLLER) Source Urine, Urine, Midstream 11/03/2024 1:23 PM GAUGE CONTROLLER DTL Comment:REVISED RESULTS Color, U Yellow 11/03/2024 12:57 PM GAUGE CONTROLLER DTL Clarity, U Clear 11/03/2024 12:57 PM GAUGE CONTROLLER DTL Protein, U 13 <26 mg/dL 11/03/2024 2:17 PM GAUGE CONTROLLER DTL Protein/Osmol ality 0.22 <0.42 ratio 11/03/2024 2:17 PM GAUGE CONTROLLER DTL Predicted 24 HR Protein, U 227 <229 mg/24 h 11/03/2024 2:17 PM GAUGE CONTROLLER DTL Predicted Range 72-715 mg/24 h 11/03/2024 2:17 PM GAUGE CONTROLLER DTL Urine (Urine, Straight Catheter) 11/03/2024 11:28 AM GAUGE CONTROLLER 11/03/2024 12:57 PM GAUGE CONTROLLER Jazlyn Bhakta P.A.-C. LAB URINE ORDERABLES Kimberly taylor Result [facility] [address] [place] [address], [facility] [address] [place] [address] * CT Abdomen Pelvis without IV Contrast (11/03/2024 11:10 AM GAUGE CONTROLLER) Anatomical Region Laterality Modality Abdomen, Pelvis, Abdominal R ST LOS, Abdominal ARZ LOS, Abdominal FLA LOS N/A Computed Tomograp hy, Computed Tomography 11/03/2024 11:1 2 AM GAUGE CONTROLLER Impressions 11/03/2024 11:22 AM GAUGE CONTROLLER 1. 7 mm calculus in the distal left ureter without significant hydronephrosis. 2. Additional tiny nonobstructive left upper pole calyceal tip calculus. Narrative 11/03/2024 11:22 AM GAUGE CONTROLLER EXAM: CT ABDOMEN PELVIS WITHOUT IV CONTRAST COMPARISON: None FINDINGS: calculus measuring 7 mm in the distal left ureter with mild surrounding periureteral fat stranding but mild focal upstream ureterectasis but overall without hydronephrosis. Additional tiny nonobstructing left calyceal tip stone. No perinephric or periureteral fluid collections. Right renal cyst with posterior layering calcification/milk of calcium (series 3 image 104). No right obstructive calculus or hydronephrosis. Grossly unremarkable partially distended bladder without observable intraluminal calculus. Negative adrenal glands. Diffuse hepatic steatosis. Tiny hiatal hernia. Normal caliber small bowel and colon. Normal appendix. No definite suspicious abdominopelvic lymphadenopathy. Procedure Note Tobi Sepulveda D.O. - 11/03/2024 EXAM: CT ABDOMEN PELVIS WITHOUT IV CONTRAST COMPARISON: None FINDINGS: calculus measuring 7 mm in the distal left ureter with mild surroundingperiureteral fat stranding but mild focal upstream ureterectasis butoverall without hydronephrosis. Additional tiny nonobstructing leftcalyceal tip stone. No perinephric or periureteral fluid collections. Right renal cyst with posterior layeringcalcification/milk of calcium (series 3 image 104). No right obstructivecalculus or hydronephrosis. Grossly unremarkable partially distendedbladder without observable intraluminal calculus. Negative adrenal glands. Diffuse hepatic steatosis. Tiny hiatal hernia. Normal caliber small boweland colon. Normal appendix. No definite suspicious abdominopelviclymphadenopathy. IMPRESSION: 1. 7 mm calculus in the distal left ureter without significanthydronephrosis. 2. Additional tiny nonobstructive left upper pole calyceal tipcalculus. us Jazlyn Bhakta P.A.-C. IMG CT PROCEDURES Final R esult documented in this encounter Visit Diagnoses Diagnosis Ureterolithiasis- Primary Ureterolithiasis documented in this encounter Care Teams Escalator Service Mechanic Relationship Specialty Start Date End Date Elsewhere, Pcp PCP - General Internal Medicine 11/03/24 documented as of this encounter
--- OUTSIDE RECORDS SUMMARY | 2024-12-07 20:41 | XMS_ITS | Encounter Summary ---
Author Organization [facility] Address [address] [place] [address] Care Team Providers Care Maintenance Machinist Name Role Phone Elsewhere, Pcp Primary Care Provider Unavailabl e Reason for Referral * Outpatient (Routine) - Authorized Specialty Diagnoses / Procedures Referred By Sharif mathew Referred To Contact Anesthesiology Diagnoses Ureterolithiasis Cb Saucedo M.D., M.P.H. 200 [place] [address] Phone: tel: fax: [facility] Referral ID Status Reason Start Date Expiration Date V isits Requested Visits Authorized [id number] Authorized 11/22/2024 05/24/2026 1 1 ORY REPRESENTATIVE Reason for Visit * Outpatient (Routine) - Closed Specialty Diagnoses / Procedures Referred By Sharif mathew Referred To Contact Urology Diagnoses Ureterolithiasis Reema Cedeno P.A.-C., M.S. 200 [place] [address] Phone: tel: fax: [facility] Referral ID Status Reason Start Date Expiration Date Visits Re quested Visits Authorized [id number] Closed 11/03/2024 05/05/2026 1 1 Encounter Details Date Type Department Care Team (Latest Contact Info) Description 11/22/2024 3:00 PM FACTORY REPRESENTATIVE Comprehensive Visit Department of Urology in [place], [place] [address] [place] [phone] Cb Saucedo M.D., M.P.H. [address] [place] [address] [place] [address] Ureterolithiasis (Primary Dx); Pain Flank Social History Tobacco Use Types Packs/Day Years Used Date Smoking Tobacco: Never Alcohol Use Standard Drinks/Week Comments Not Currently 0 (1 standard drink = 0.6 oz pur e alcohol) [facility] Utilities Answer Date Recorded In the past 12 months has th e [employer], gas, oil, or water company threatened to shut off services in your home? No 11/21/2024 Exercise Vital Sign Answer Date Recorde d On average, how many days pe r week do you engage in moderate to strenuous exercise (like a brisk walk)? 0 days 11/21/2024 On average, how many minutes do you engage in exercise at this level? 0 min 11/21/2024 Hunger Vital Sign Answer Date Recorded Within the past 12 months, y ou worried that your food would run out before you got the money to buy more. Never true 11/21/19 Within the past 12 months, t he food you bought just didn't last and you didn't have money to get more. Never true 11/21/2024 PRAPARE - Transportation Answer Date Re corded In the past 12 months, has l ack of transportation kept you from medical appointments or from getting medications? No 11/2024 In the past 12 months, has l ack of transportation kept you from meetings, work, or from getting things needed for daily living? No 11/21/2024 Nutrition Answer Date Recorded On average, how many serving s of fruits and vegetables do you eat per day (serving size is equal to 1 cup or approximately the size of a tennis ball)? 0-2 11/21/2024 Dental Answer Date Recorded Dental: Regular Dentist No 11/21/19 Employment Answer Date Recorded Employment status Employed and actively working without restrictions 11/21/2024 Housing Stability Answer Date Recorded What is your living situation today? I have a [facility] place to live 11/21/2024 Sex and Gender Information Value Date Recorded Sex Assigned at Male 11/21/2024 8:18 PM FACTORY REPRESENTATIVE Legal Sex Male 10:27 AM FACTORY REPRESENTATIVE Gender Identity Male 11/21/2024 8:18 PM FACTORY REPRESENTATIVE Sexual Orientation Straight 11/21/2024 8: 18 PM FACTORY REPRESENTATIVE documented as of this encounter Consult Notes * Christina Hoskins APRN, C.N.P. - 11/22/2024 3:00 PM CST REFERRAL SOURCE The patient is being seen in consultation at the request of Reema Cedeno P.A.-C., M.S. [address] [place] [phone] REASON FOR CONSULT Nephrolithiasis HISTORY OF PRESENT ILLNESS Mr. Ashley is a pleasant 34 y.o. male whose comorbidities include obesity (BMI 52) and hypertension. He presented to the emergency department on 11/03/2024 with left flank pain. CT imaging was notable for a 7 mm calculus in the distal left ureter without significant hydronephrosis with additional tiny nonobstructing left upper pole calyceal tip calculi. Serum creatinine was 0.96. Urinalysis showed 31-40 RBCs. Urine culture showed <10 CFU of an organism. He has provided with an Rx for tamsulosin. He had already had an Rx for Toradol and oxycodone secondary to a local emergency room visit on 11/02/2024. He presents today noting a constant discomfort. He has not required Toradol in 4-5 days. Also has aRx for oxycodone for which he has not use. No gross hematuria. He is taking tamsulosin 0.4 mg daily. He does not feel as if he has passed any stony material sincethe ED visit. Previous stone history Denies Family history Both parents had nephrolithiasis LABS Lab Results Component Value Date NA 141 11/03/2024 CL 103 11/03/2024 BUN 11 11/03/2024 CO2 26 08/19/2022 HGB 14.8 11/03/2024 HCT 47.4 11/03/2024 WBC 9.3 11/03/2024 No results found for: HCO3 No results found for: K Lab Results Component Value Date/Time CREATININE 0.96 11/03/2024 11:39 AM CREATININE 0.83 11/03/2023 01:28 PM CREATININE 0.83 08/19/2022 02:32 PM Serum labs: Lab Results Component Value Date/Time CALCIUM 9.2 11/03/2024 11:39 AM CALCIUM 9.2 11/03/2023 01:28 PM CALCIUM 9.1 08/19/2022 02:32 PM Stone analysis: 24 hour urine components: No results found for: URINEVOLUME, LABPH, SNGKO18TDBP, CALCIUMUR, LZ40JRB, MG24HR, DQZWUWXZHP21, XSXHLSHPN41D, OWHTCA94Y Crystal supersaturations: No results found for: CAOXY24, LABBRUS, PKSDEQUBA35T, URICACIDSAT, NAURATE Urinalysis Lower Urinary Symptoms Lower Urinary Sx: able to sense full bladder (+) 4 x per day 1 x nightly Obstructive Sx: kidney infections or required hospitalization for kidney failure (-) # of UTI's in past year: None Required catheter: no Incontinence: unintentionally leaks urine (-) Treatments: Treatments taken for urinary symptoms: medications treatments helped (+) had surgical or office procedures to improve urinary symptoms (-) The following portions of the patient's history were reviewed and updated as appropriate: allergies, current medications, family history, medical history, social history, surgical history, and problem list. PAST MEDICAL/SURGICAL HISTORY MEDICAL Medical History[1] SURGICAL Surgical History[2] ALLERGIES Allergies[3] SOCIAL HISTORY Social History Socioeconomic History Marital status: Spouse name: Not on file Number of children: Not on file Years of education: Not on file Highest education level: Not on file Occupational History Not on file Tobacco Use Smoking status: Never Smokeless tobacco: Not on file Vaping Use Vaping status: never used Substance and Sexual Activity Alcohol use: Not Currently Drug use: Never Sexual activity: Not on file Other Topics Concern Not on file Social History Narrative Not on file Social Drivers of Health Food Insecurity: No Food Insecurity (11/21/2024) Hunger Vital Sign Worried About Running Out of Food in the Last Year: Never true Ran Out of Food in the Last Year: Never true Transportation Needs: No Transportation Needs (11/21/2024) PRAPARE - Transportation Lack of Transportation (Medical): No Lack of Transportation (Non-Medical): No Physical Activity: Inactive (11/21/2024) Exercise Vital Sign Days of Exercise per Week: 0 days Minutes of Exercise per Session: 0 min Intimate Partner Violence: Not on file Housing Stability: Low Risk (11/21/2024) Housing Stability Housing: Living Situation: I have a steady place to live FAMILY HISTORY Family History[4] SYSTEMS REVIEW REVIEW OF SYSTEMS OBJECTIVE PHYSICAL EXAMINATION Constitutional: He is oriented to person, place, and time. He appears well- developed and well-nourished. HENT: Head: Normocephalic and atraumatic. Eyes: No scleral icterus. Neck: Neck supple. Pulmonary/Chest: Effort normal. Musculoskeletal: Normal range of motion. Neurological: He is alert and oriented to person, place, and time. Skin: No rash noted. Psychiatric: He has a normal mood and affect. His behavior is normal. IMAGING AND TESTS CT Abdomen Pelvis without IV Contrast Result Date: 11/03/2024 Impression: 1. 7 mm calculus in the distal left ureter without significant hydronephrosis. 2. Additional tiny nonobstructive left upper pole calyceal tip calculus. IMPRESSION/REPORT/PLAN 1. Ureterolithiasis Dr. Saucedo and I met with Darren Ashley in clinic today. He has a 7 mm mildly symptomatic distal left ureteral stone. Kidney function has been stable. There is no significant hydronephrosis on CT imaging. We discussed surgical management with ureteroscopic stone extraction. Ureteroscopic stone extraction involves dilation of the ureter and/or ureteral stent placement prior to ureteroscopy may be necessary to achieve ureteral access safely. Multiple/to stage interventions may be required. Complications include ureteral perforation, avulsion, infection/sepsis and ureteral stricture. He should continue on tamsulosin 0.4 mg daily. He was provided with a urine strainer and he was asked to strain his urine until surgical intervention or he passes the stone. We discussed red flag symptoms that would prompt an ER visit including send severe pain not relieved by oral pain medication,fever or tachycardia. We reviewed symptoms of urinary tract infection, if he develops symptoms of urinary tract infection, he should contact either Dr. Saucedo or his primary provider for urine culture. PATIENT EDUCATION Ready to learn, no apparent learning barriers were identified; learning accepting preferences include listening. Explained diagnosis and treatment plan; patient expressed understanding of the content. Signed by: Christina Hoskins APRN, C.N.P. 11/22/2024 2:24 PM FACTORY REPRESENTATIVE [1] No past medical history on file. [2] No past surgical history on file. [3] No Known Allergies [4] No family history on file. Cosigned by Cb Saucedo M.D., M.P.H. at 11/22/2024 4:23 PM FACTORY REPRESENTATIVE ORY REPRESENTATIVE ORY REPRESENTATIVE Associated attestation - Cb Saucedo M.D., M.P.H. - 11/22/2024 4:23 PM FACTORY REPRESENTATIVE I personally saw the patient on the date of the encounter. I personally interpreted and reviewed with the patient the relevant laboratory and imaging findings. I discussed the patient with the Resident/BLAINE and agree with the note which accurately reflects my own findings and plan. He has a symptomatic obstructing 7 mm stone in the left distal ureter. He is on tamsulosin. Symptoms are reasonably controlled at this time. He does not report change in location or character of the symptoms. We reviewed management options. If he is not able to pass the stone spontaneously he will require left ureteroscopy, laser lithotripsy, ureteral stent placement. We will schedule in the Outpatient Procedure Center. He will return to the ED if he has uncontrolled pain or new infection symptoms. We discussed ureteral stent decompression at that time. A urine strainer was provided. He will update urine testing prior to surgery. documented in this encounter Plan of Treatment Upcoming Encounters Date Type Department Care Team (Latest Contact Info) Description 12/17/2024 3:40 PM FACTORY REPRESENTATIVE Appointment Department of Laboratory Medicine in [address] [phone] Cb Saucedo M.D., M.P.H. [address] [place] [phone] 12/20/2024 1:00 PM FACTORY REPRESENTATIVE Appointment Department of Radiology in [address] [phone] Cb Saucedo M.D., M.P.H. [address] [place] [phone] Discharge Disposition: Home or Self Care 12/28/2024 3:00 PM CDT Clinical Communication Virtual Review in [place], [place] 200 [place] [address] 12/29/2024 10:45 AM CDT Comprehensive Visit Preoperative Evaluation Center in [place], [place] [address] [place] [phone] Cb Saucedo M.D., M.P.H. [address] [place] [phone] 12/30/2024 10:44 AM CDT Hospital Encounter Outpatient Procedure Center in [address] [phone] Shlomo Bradshaw M.D., M.S. [address] [place] [phone] 12/30/2024 10:44 AM CDT - 12/30/2024 12:29 PM CDT Surgery Outpatient Procedure Center in [address] [phone] Shlomo Bradshaw M.D., M.S. [address] [place] [phone] URETEROSCOPY WITH LASER LITHOTRIPSY, possible multiple trips to the operating room in 90 days, proceed as indicated Scheduled Procedures Name Priority Associated Diagnoses Date/Ti ct URETEROSCOPY WITH LASER LITHOTRIPSY Ureterolithiasis 12/30/2024 10:44 AM CDT STENT PLACEMENT - INTERNAL Ureterolithiasis 12/30/2024 10:44 AM CDT Scheduled Referrals Name Type Priority Associated Diagnoses Order Schedule Preoperative Evaluation JESSE consult (clinic) Outpatient Referral Routine Ureterolithiasis 1 Occurrences starting 11/22/2024 until 02/19/2026 documented as of this encounter Visit Diagnoses Diagnosis Ureterolithiasis- Primary Pain Flank Ureterolithiasis- Primary Ureterolithiasis documented in this encounter Care Teams Maintenance Machinist Relationship Specialty Start Date End Date Elsewhere, Pcp PCP - General Internal Medicine 11/03/24 documented as of this encounter
--- OUTSIDE RECORDS SUMMARY | 2024-12-07 20:41 | XMS_ITS | Encounter Summary ---
Author Organization [facility] Address [address] [place] [address] Care Team Providers Care Vault Custodian Name Role Phone Elsewhere, Pcp Primary Care Provider Unavailabl e Reason for Referral * MRI/CAT/PET Scan (Routine) - Authorized Specialty Diagnoses / Procedures Referred By Sharif mathew Referred To Contact Radiology Diagnoses Ureterolithiasis Procedures CT Abdomen Pelvis without IV Contrast Cb Saucedo M.D., M.P.H. [address] [place] [phone] Phone: tel: fax: [facility] Region Referral ID Status Reason Start Date Expiration Date V isits Requested Visits Authorized [id number] Authorized 11/25/2024 02/25/2026 1 1 SE AND TALLOW PUMPER Encounter Details Date Type Department Care Team (Late st Contact Info) Description 11/25/2024 Orders Only Department of Urology in [place], [place] [address] [place] [phone] Cb Saucedo M.D., M.P.H. [address] [place] [phone] Ureterolithiasis (Primary Dx) Social History Tobacco Use Types Packs/Day Years Used Date Smoking Tobacco: Never Alcohol Use Standard Drinks/Week Comments Not Currently 0 (1 standard drink = 0.6 oz pur e alcohol) [facility] Utilities Answer Date Recorded In the past 12 months has [employer], gas, oil, or water [employer] threatened to shut off services in your [...] money to buy more. Never true 11/21/19 25 Within the past 12 months, t he [...] your living situation today? I have a [facility] place to live 11/21/2024 Sex and Gender Information Value Date Recorded Sex Assigned at Male 11/21/2024 8:18 PM GREASE AND TALLOW PUMPER Legal Sex Male 10:27 AM GREASE AND TALLOW PUMPER Gender Identity Male 11/21/2024 8:18 PM GREASE AND TALLOW PUMPER Sexual Orientation Straight 11/21/2024 8: 18 PM GREASE AND TALLOW PUMPER documented as of this encounter Plan of Treatment Upcoming Encounters Date Type Department Care Team (Latest Contact Info) Description 12/17/2024 3:40 PM GREASE AND TALLOW PUMPER Appointment Department of Laboratory Medicine in [address] [phone] Cb Saucedo M.D., M.P.H. [address] [place] [address] 12/20/2024 1:00 PM GREASE AND TALLOW PUMPER Appointment Department of Radiology in [address] [phone] Cb Saucedo M.D., M.P.H. [address] [place] [phone] Discharge Disposition: Home or Self Care 12/28/2024 3:00 PM CDT Clinical Communication Virtual Review in [place], [place] 200 [place] [address] 12/29/2024 10:45 AM CDT Comprehensive Visit Preoperative Evaluation Center in [place], [place] [address] [place] [phone] Cb Saucedo M.D., M.P.H. [address] [place] [phone] 12/30/2024 10:44 AM CDT Hospital Encounter Outpatient Procedure Center in [place], [place] [address] [place] [phone] Shlomo Bradshaw M.D., M.S. [address] [place] [phone] 12/30/2024 10:44 AM CDT - 12/30/2024 12:29 PM CDT Surgery Outpatient Procedure Center in [place], [place] [address] [place] [phone] Shlomo Bradshaw M.D., M.S. [address] [place] [phone] URETEROSCOPY WITH LASER LITHOTRIPSY, possible multiple trips to the operating room in 90 days, proceed as indicated Scheduled Orders Name Type Priority Associated Diagnoses Order Schedule CT Abdomen Pelvis without IV Contrast Imaging RAD - Routine (most inpatients and all outpatients) Ureterolithiasis 1 Occurrences starting 11/25/2024 until 02/22/2026 Bacterial Culture, Aerobic + Susceptibility, Urine Microbiology Routine Ureterolithiasis 1 Occurrences starting 11/25/2024 until 02/22/2026 Scheduled Procedures Name Priority Associated Diagnoses Date/Ti me URETEROSCOPY WITH LASER LITHOTRIPSY Ureterolithiasis 12/30/2024 10:44 AM CDT STENT PLACEMENT - INTERNAL Ureterolithiasis 12/30/2024 10:44 AM CDT documented as of this encounter Visit Diagnoses Diagnosis Ureterolithiasis- Primary Ureterolithiasis- Primary Ureterolithiasis documented in this encounter Care Teams Vault Custodian Relationship Specialty Start Date End Date Elsewhere, Pcp PCP - General Internal Medicine 11/03/24 documented as of this encounter
--- OUTSIDE RECORDS SUMMARY | 2024-12-07 20:41 | XMS_ITS | Clinical Summary ---
Author Organization [employer] [facility] Address [address] [place] [address] Care Team Providers Care Geothermal Technician Name Role Phone Kenzie Rivera NP Primary Care Provider [phone] Allergies No known active allergies Medications lisinopril-hydr [...] Encounters Date Type Department Care Team Description 11/03[facility]2024 [facility] [address] [address] Arline Sawyer NP Refill Request (cpap rx) from Last 3 Months Immunizations Name Administration [...] on file Legal Sex Male 5:25 AM PRESCHOOL TEACHER AIDE Gender Identity Not on file Sexual Orientation Not on file Occupation Industry Job Start Date Job End Date [employer] Not on file Not on file Not on file Obstetrics History Last Filed Vital Signs Vital Sign Reading Time Taken Comments Blood Pressure 138/80 11/03/2023 1:01 PM PRESCHOOL TEACHER AIDE Pulse 102 11/03/2023 1:01 PM PRESCHOOL TEACHER AIDE Temperature 36.9 C (98.4 F) 10/23/2019 7:59 AM PRESCHOOL TEACHER AIDE Respiratory Rate 16 11/03/2023 1:01 PM PRESCHOOL TEACHER AIDE Oxygen Saturation 98% 11/03/2023 1:01 PM PRESCHOOL TEACHER AIDE Inhaled Oxygen Concentration - - Weight 179.6 kg (396 lb) 11/03/2023 1:01 PM PRESCHOOL TEACHER AIDE Height 185.4 cm (6' 1) 11/03/2023 1:01 PM PRESCHOOL TEACHER AIDE Body Mass Index 52.25 11/03/2023 1:01 PM PRESCHOOL TEACHER AIDE Plan of Treatment Health Maintenance Due Date [...] this topic Insurance [employer] Care Teams Geothermal Technician Relationship Specialty Start Date End Date Kenzie Rivera NP [address] [place] [address] PCP - General Nurse Practitioner - Family 11/03/23
--- OUTSIDE RECORDS SUMMARY | 2024-12-07 20:42 | XMS_ITS | Clinical Summary ---
Author Organization [facility] Address [address] [place] [address] Care Team Providers Care Picture Frames Inspector Name Role Phone Elsewhere, Pcp Primary Care Provider Unavailabl e Source Comments Patient records contain information from all sites at [facility]. For routine questions regarding patient records, call [phone] during business hours, M-F 8:00 AM - 5:00 PM Central Time. Record requests for emergency care only can be directed to [phone] at any time.[facility] Allergies No known active allergies Medications lisinopril-hydr oCHLOROthiazide 20-25 mg per tablet Take 1 tablet by mouth daily. 11/03/2023 Active ketorolac (ToradoL) 10 mg tablet Take 10 mg by mouth every 4 (four) hours as needed for pain. Active oxyCODONE (Oxy IR) 5 mg immediate release capsule Take 5 mg by mouth every 4 (four) hours as needed for pain. Active tamsulosin (Flomax) 0.4 mg 24 hr capsule Take 1 capsule (0.4 mg total) by mouth daily. 30 capsule 11/03/2024 12/03/19 25 Active Problems Problem Noted Date Diagnosed Date Ureterolithiasis 11/22/2024 Asthma Mild Intermittent 08/21/2015 Morbid Severe Obesity Due To Excess Calories 11/2014 Resolved Problems Problem Noted Date Diagnosed Date Resolved Date Hypertension Essential Primary 08/21/2015 11/22/2024 Encounters Date Type Department Care Team Description 11/25/2024 Orders Only Department of Urology in [place], [place] [address] [place] [address] Cb Saucedo M.D., M.P.H. Ureterolithiasis (Primary Dx) 11/22/2024 3:00 PM SCOURER Comprehensive Visit Department of Urology in [place], [place] [address] [place] [address] Cb Saucedo M.D., M.P.H. Ureterolithiasis (Primary Dx); Pain Flank 11/03/2024 10:27 AM SCOURER - 11/03/2024 1:55 PM SCOURER Emergency [facility] Emergency Department [address] [place] [address] Reema Cedeno P.A.-C., M.S. Ureterolithiasis (Primary Dx) Discharge Disposition: Home or Self Care from Last 3 Months Social History Tobacco Use Types Packs/Day Years Used Date Smoking Tobacco: Never Tobacco Cessation:Counseling Given: Not Answered Alcohol Use Standard Drinks/Week Comments Not Currently 0 (1 standard drink = 0.6 oz pur e alcohol) [facility] [employer] Answer Date Recorded In the past 12 months has e [employer], gas, oil, or water [employer] threatened to shut off services in your [...] your living situation today? I have a [facility] place to live 11/21/2024 Sex and Gender Information Value Date Recorded Sex Assigned at Male 11/21/2024 8:18 PM SCOURER Legal Sex Male 10:27 AM SCOURER Gender Identity Male 11/21/2024 8:18 PM SCOURER Sexual Orientation Straight 11/21/2024 8: 18 PM SCOURER Last Filed Vital Signs Vital Sign Reading Time Taken Comments Blood Pressure 165/97 11/03/2024 1:45 PM SCOURER Pulse 73 11/03/2024 1:45 PM SCOURER Temperature 36.8 C (98.2 F) 11/03/2024 10:36 AM SCOURER Respiratory Rate 20 11/03/2024 10:36 AM SCOURER Oxygen Saturation 98% 11/03/2024 1:45 PM SCOURER Inhaled Oxygen Concentration - - Weight 192 kg (423 lb 15.1 oz) 11/03/2024 10:29 AM SCOURER Height - - Body Mass Index - - Plan of Treatment Upcoming Encounters Date Type Department Care Team (Latest Contact Info) Description 12/17/2024 3:40 PM SCOURER Appointment Department of Laboratory Medicine in [address] [phone] Cb Saucedo M.D., M.P.H. [address] [place] [phone] 12/20/2024 1:00 PM SCOURER Appointment Department of Radiology in [address] [phone] Cb Saucedo M.D., M.P.H. [address] [place] [phone] Discharge Disposition: Home or Self Care 12/28/2024 3:00 PM CDT Clinical Communication Virtual Review in [place], [place] 200 [place] [address] 12/29/2024 10:45 AM CDT Comprehensive Visit Preoperative Evaluation Center in [place], [place] [address] [place] [phone] Cb Saucedo M.D., M.P.H. [address] [place] [phone] 12/30/2024 10:44 AM CDT Hospital Encounter Outpatient Procedure Center in [place], [place] [address] [place] [phone] Shlomo Bradshaw M.D., M.S. [address] [place] [phone] 12/30/2024 10:44 AM CDT - 12/30/2024 12:29 PM CDT Surgery Outpatient Procedure Center in [place], [place] [address] [place] [phone] Shlomo Bradshaw M.D., M.S. [address] [place] [phone] URETEROSCOPY WITH LASER LITHOTRIPSY, possible multiple trips to the operating room in 90 days, proceed as indicated Scheduled Procedures Name Priority Associated Diagnoses Date/Ti me URETEROSCOPY WITH LASER LITHOTRIPSY Ureterolithiasis 12/30/2024 10:44 AM CDT STENT PLACEMENT - INTERNAL Ureterolithiasis 12/30/2024 10:44 AM CDT Health Maintenance Due Date Last Done Comments HIV Screening 1991 Hepatitis C Screening 1991 DTaP,Tdap,and Td Vaccines (1 - Tdap) 2010 Hepatitis B Vaccines (1 of 3 - 19+ 3-dose series) 2010 Pneumococcal vaccine (0-49 years) (1 of 2 - PCV) 2010 COVID-19 Vaccine (1 - 2023-2 5 season) 2024 Influenza Vaccine (#1) 2024 08/07/2006 Depression Screening (Annual PHQ-2) 10/20/2024 Asthma Action Plan 11/22/2024 Asthma Control Test Questionnaire 11/22/2024 Asthma Management/Exacerbati on Questionnaire (AMQ/AEQ) 11/22/2024 Creatinine Level (Kidney Function Test) 11/03/2025 11/03/2024, 11/03/2023, 08/19/2022 Potassium Level 11/03/2025 11/03/2024, 11/03/2023, 08/19/2022 Sodium Level 11/03/2025 11/03/2024, 11/03/2023, 08/19/2022 HPV Vaccines Aged Out No longer eligi ble based on patient's age to complete this topic IPV Vaccines Aged Out No longer eligi ble based on patient's age to complete this topic Procedures Procedure Name Priority Date/Time Associated Diagnosis Comments LACTATE, B/P STAT 11/03/2024 11:39 AM SCOURER BASIC METABOLIC PANEL, S/P STAT 11/03/2024 11:39 AM SCOURER CBC WITH DIFFERENTIAL, B STAT 11/03/2024 11:39 AM SCOURER HC URINALYSIS AUTO WO MICRO Routine 11/03/2024 11:31 AM SCOURER DIPSTICK, U STAT 11/03/2024 11:28 AM SCOURER OSMOLALITY, U STAT 11/03/2024 11:28 AM SCOURER PH, U STAT 11/03/2024 11:28 AM SCOURER MICROSCOPIC AUTOMATED STAT 11/03/2024 11:28 AM SCOURER URINALYSIS WITH MICROSCOPIC STAT 11/03/2024 11:28 AM SCOURER BACTERIAL CULTURE, AEROBIC + SUSC, URINE STAT 11/03/2024 11:[address] ABDOMEN PELVIS WITHOUT IV CONTRAST RAD - Semiurgent (Fast; most ED patients; some inpatients) 11/03/2024 11:[address] BODY Routine 11/02/2024 10:05 PM SCOURER from Last 3 Months Results * (ABNORMAL) CBC with Differential, Blood (11/03/2024 11:39 AM SCOURER) Hemoglobin 14.8 13.2 - 16.6 g/dL 11/03/2024 11:47 AM SCOURER STMA Hematocrit 47.4 38.3 - 48.6 % 11/03/2024 11:47 AM SCOURER STMA Erythrocytes 5.40 4.35 - 5.65 x10(12)/L 11/03/2024 11:47 AM SCOURER STMA MCV 87.8 78.2 - 97.9 fL 11/03/2024 11:47 AM SCOURER STMA RBC Distrib Width 13.2 11.8 - 14.5 % 11/03/2024 11:47 AM SCOURER STMA Platelet Count 239 135 - 317 x10(9)/L 11/03/2024 11:47 AM SCOURER STMA Leukocytes 9.3 3.4 - 9.6 x10(9)/L 11/03/2024 11:47 AM SCOURER STMA Neutrophils 6.01 1.56 - 6.45 x10(9)/L 11/03/2024 11:47 AM SCOURER DHPM Lymphocytes 2.06 0.95 - 3.07 x10(9)/L 11/03/2024 11:47 AM SCOURER STMA Monocytes 0.92(H) 0.26 - 0.81 x10(9)/L 11/03/2024 11:47 AM SCOURER STMA Eosinophils 0.25 0.03 - 0.48 x10(9)/L 11/03/2024 11:47 AM SCOURER STMA Basophils 0.04 0.01 - 0.08 x10(9)/L 11/03/2024 11:47 AM SCOURER STMA Blood (Blood, Venous) 11/03/2024 11:39 AM SCOURER 11/03/2024 11:45 AM SCOURER Wesan S Shango P.A.-C. LAB BLOOD ADD-ON Final Re sult Performing Organization Address City/[facility]/ZIP Co de Phone Number [facility] [address] [place] [address], [facility] 200 [place] [address] [facility] 200 [place] [address] * Lactate (11/03/2024 11:39 AM SCOURER) Pathologist [facility] Lactate, P 1.9 0.5 - 2.2 mmol/L 11/03/2024 11:57 AM SCOURER STMA Blood (Blood, Venous) 11/03/2024 11:39 AM SCOURER 11/03/2024 11:45 AM SCOURER Jazlyn Bhakta P.A.-C. LAB BLOOD NON ADD-ON Kimberly l Result Performing Organization Address [facility]/ZIP Co de Phone Number [facility] [address] [place] [address], [facility] 200 [place] [address] * (ABNORMAL) Basic Metabolic Panel (11/03/2024 11:39 AM SCOURER) Pathologist [facility] Potassium, P 3.5(L) 3.6 - 5.2 mmol/L 11/03/2024 12:01 PM SCOURER STMA Sodium, P 141 135 - 145 mmol/L 11/03/2024 12:01 PM SCOURER STMA Chloride, P 103 98 - 107 mmol/L 11/03/2024 12:01 PM SCOURER STMA Bicarbonate, P 28 22 - 29 mmol/L 11/03/2024 12:01 PM SCOURER STMA Anion Gap, P 10 7 - 15 11/03/2024 12:01 PM SCOURER STMA BUN (Blood Urea Nitrogen), P 11 8 - 24 mg/dL 11/03/2024 12:01 PM SCOURER STMA Creatinine 0.96 0.74 - 1.35 mg/dL 11/03/2024 12:01 PM SCOURER STMA Estimated GFR (eGFR) >90 >=60 mL/min/BSA 11/03/2024 12:01 PM SCOURER STMA Comment: Estimated GFR calculated using the 2020 CKD_EPI creatinine equation. Calcium, Total, P 9.2 8.6 - 10.0 mg/dL 11/03/2024 12:01 PM SCOURER STMA Glucose, P 157(H) 70 - 140 mg/dL 11/03/2024 12:01 PM SCOURER STMA Blood (Blood, Venous) 11/03/2024 11:39 AM SCOURER 11/03/2024 11:45 AM SCOURER Jazlyn Bhakta P.A.-C. LAB BLOOD ADD-ON Final Re sult [facility] [address] [place] [address], [facility] 200 [place] [address] * (ABNORMAL) Dipstick, POCT, Urine (11/03/2024 11:31 AM SCOURER) Glucose, POCT, U Negative Negative mg/dL 11/03/2024 11:33 AM SCOURER PCED Ketone, POCT, U Negative Negative mg/dL 11/03/2024 11:33 AM SCOURER PCED Specific [place], POCT, U 1.025 1.005 - 1.030 11/03/2024 11:33 AM SCOURER PCED Blood, POCT, U Moderate(A) Negative 11/03/2024 11:33 AM SCOURER PCED pH, POCT, Urine 6.0 5.0 - 8.0 11/03/2024 11:33 AM SCOURER PCED Protein, POCT, U Trace(A) Negative mg/dL 11/03/2024 11:33 AM SCOURER PCED Nitrites, POCT, U Negative Negative 11/03/2024 11:33 AM SCOURER PCED Leukocytes, POCT, U Negative Negative 11/03/2024 11:33 AM SCOURER PCED Urine 11/03/2024 11:3 1 AM SCOURER 11/03/2024 11:34 AM SCOURER Unknown Provider LAB POCT ORDERABLES - DEVICE Fi nal Result POC RST [facility] 200 [place] [address], [facility] PCED [facility] 200 [place] [address] * (ABNORMAL) Dipstick, Urine (11/03/2024 11:28 AM SCOURER) Hemoglobin, QL, U Small(A) Negative 11/03/2024 1:13 PM SCOURER DTL Leukocyte Esterase, U Negative Negative 11/03/2024 1:13 PM SCOURER DTL Nitrite, U Negative Negative 11/03/2024 1:13 PM SCOURER DTL Ketone, U Negative Negative mg/dL 11/03/2024 1:13 PM SCOURER DTL Glucose, U Negative Negative mg/dL 11/03/2024 1:13 PM SCOURER DTL Urine 11/03/2024 11:2 8 AM SCOURER 11/03/2024 12:58 PM SCOURER Jazlyn Butcher.A.-C. LAB URINE ORDERABLES Kimberly l Result Performing Organization Address [facility] Co de Phone Number [facility] [address] [place] [address], [facility] 200 [place] [address] * (ABNORMAL) Microscopic Automated (11/03/2024 11:28 AM SCOURER) Microscopy Abnormal 11/03/2024 1:13 PM SCOURER DTL RBC 31-40(A) <3 /hpf 11/03/2024 1:13 PM SCOURER DTL Dysmorphic RBC <25 <25 % 11/03/2024 1:13 PM SCOURER DTL WBC 1-3 /hpf 11/03/2024 1:13 PM SCOURER DTL Comment: ----REFERENCE VALUE---- <4 (Males) <11 (Females) Urine 11/03/2024 11:2 8 AM SCOURER 11/03/2024 12:58 PM SCOURER Jazlyn Butcher.A.-C. LAB URINE ORDERABLES Kimberly l Result Performing Organization Address City/[facility] Co de Phone Number [facility] [address] [place] [address] * Bacterial Culture, Aerobic + Susceptibility, Urine (11/03/2024 11:28 AM SCOURER) Urine Culture Organism present <10,000 cfu/mL, susceptibilities not performed per laboratory criteria. 11/04/2024 11:08 AM SCOURER DTL Urine (Urine, Straight Catheter) 11/03/2024 11:28 AM SCOURER 11/03/2024 11:02 PM SCOURER Comment:Specimen Source Site : Urine Jazlyn GraffC. LAB MICROBIOLOGY - GENERA L ORDERABLES Final Result Performing Organization Address [facility] Co de Phone Number [facility] [address] [place] [address] * pH, Urine (11/03/2024 11:28 AM SCOURER) pH, U 5.6 4.5 - 8.0 11/03/2024 2:0 6 PM SCOURER DT Urine 11/03/2024 11:2 8 AM SCOURER 11/03/2024 12:58 PM SCOURER Jazlyn GraffCKaty LAB URINE ORDERABLES Kimberly l Result Performing Organization Address City/[facility]/ZIP Co de Phone Number [facility] [address] [place] [address] * Osmolality, Urine (11/03/2024 11:28 AM SCOURER) Osmolality, U 579 150 - 1150 mOsm/kg 11/03/2024 2:06 PM SCOURER DTL Urine 11/03/2024 11:2 8 AM SCOURER 11/03/2024 12:58 PM SCOURER Jazlyn Bhakta P.A.-C. LAB URINE ORDERABLES Kimberly l Result Performing Organization Address [facility] Co de Phone Number [facility] [address] [place] [address], [facility] DTL [facility] 200 [place] [address] * Urinalysis, with Microscopic: Urine, Straight Catheter (11/03/2024 11:28 AM SCOURER) Source Urine, Urine, Midstream 11/03/2024 1:23 PM SCOURER DTL Comment:REVISED RESULTS Color, U Yellow 11/03/2024 12:57 PM SCOURER DTL Clarity, U Clear 11/03/2024 12:57 PM SCOURER DTL Protein, U 13 <26 mg/dL 11/03/2024 2:17 PM SCOURER DTL Protein/Osmol ality 0.22 <0.42 ratio 11/03/2024 2:17 PM SCOURER DTL Predicted 24 HR Protein, U 227 <229 mg/24 h 11/03/2024 2:17 PM SCOURER DTL Predicted Range 72-715 mg/24 h 11/03/2024 2:17 PM SCOURER DTL Urine (Urine, Straight Catheter) 11/03/2024 11:28 AM SCOURER 11/03/2024 12:57 PM SCOURER Jazlyn Bhakta P.A.-C. LAB URINE ORDERABLES Kimberly l Result Performing Organization Address City/[facility]/ZIP Co de Phone Number [facility] [address] [place] [address], [facility] DTL [facility] 200 [place] [address] * CT Abdomen Pelvis without IV Contrast (11/03/2024 11:10 AM SCOURER) Anatomical Region Laterality Modality Abdomen, Pelvis, Abdominal R ST LOS, Abdominal ARZ LOS, Abdominal FLA LOS N/A Computed Tomograp hy, Computed Tomography 11/03/2024 11:1 2 AM SCOURER Impressions 11/03/2024 11:22 AM SCOURER 1. 7 mm calculus in the distal left ureter without significant hydronephrosis. 2. Additional tiny nonobstructive left upper pole calyceal tip calculus. Narrative 11/03/2024 11:22 AM SCOURER EXAM: CT ABDOMEN PELVIS WITHOUT IV CONTRAST [...] tiny nonobstructive left upper pole calyceal tipcalculus. Jazlyn Bhakta P.A.-C. IMG CT PROCEDURES Final R esult * CT ABDOMEN PELVIS WO CON-Outside CT Body (11/02/2024 10:05 PM SCOURER) Narrative IIMS - 11/04/2024 6:21 AM SCOURER This order has been created and auto-finalized to support the import of outside images. If available, original interpretation can be found on the Media Tab in Chart Review, in Document Viewer, as an image in QREADS or as an Addendum. If a re-interpretation or overread is required please follow defined workflow. us Provider Not In System IMG CT PROCEDURES Final R esult IIKS NA from Last 3 Months Insurance [employer] Care Teams Picture Frames Inspector Relationship Specialty Start Date End Date Elsewhere, Pcp PCP - General Internal Medicine 11/03/24
--- NOTE | 2024-12-07 21:24 | ED_ITS ---
HPI - General Adult General Date Seen: 12/07/24 Chief complaint: Abdominal Pain Stated complaint: L abdomen pain, kidney stone Time Seen by Provider: 12/07/24 20:40 Source: patient Mode of arrival: ambulatory Limitations: no limitations History of Present Illness HPI narrative: Patient is a 34-year-old male presenting for left-sided flank pain. States this pain feels just like his previously known kidney stone. Is 8 mm in size. Is scheduled to have surgery to remove and in December. Is currently following up closely with Urology. He states he usually does not have any pain associated with that but began to have pain today and to quit Toradol pill. That helped for a few hours but the pain came back. Has not noticed any dysuria. Denies abdominal pain, nausea, chest pain, shortness of breath, fevers, chills, weakness, numbness. Has not had any associated lightheadedness. No other concerns noted. Related Data Home Medications ?Medication ?Instructions ?Recorded ?Confirmed No Known Home Medications 11/02/24 11/02/24 Allergies Allergy/AdvReac Type Severity Reaction Status Date / Time No Known Drug Allergies Allergy Verified 11/02/24 21:45 Review of Systems Status of ROS: Reports: 10 or more systems reviewed and unremarkable except as noted in History and below [facility] Medical History HTN (hypertension) ?I10 - Essential (primary) hypertension (ICD-10) Surgical History No significant past surgical history Social History Smoking Status: Never smoker Do you use any of these nicotine containing products: None Second hand tobacco smoke exposure: No How often do you have a drink containing alcohol: never AUDIT-C Alcohol total score: 0 Non-prescribed substance use: denies use service: No Exam Narrative: Exam Narrative: Const: Well-nourished, Well-developed, in mild distress Eyes: PERRL, no conjunctival injection, and symmetrical lids HENT: Atraumatic external nose and ears. Moist mucous membranes. Neck: Symmetric, trachea midline, No thyromegaly. CVS: RRR, No murmurs or gallops. Peripheral pulses 2+ and equal in all extremities RESP: Unlabored respiratory effort. Clear to auscultation bilaterally. GI: Nontender/Nondistended, No rebound or guarding. MSK:Extremities w/o deformity, Normal Active ROM Skin: Warm, Dry. No rashes or lesions. Neuro: Normal Muscle tone, No focal neurological deficits. Psych: Awake, Alert, & Oriented x3. Appropriate mood and affect. Const: Vital Signs, click to edit/add: Vital Signs - 24 hr 12/07/24 20:52 12/07/24 21:16 12/07/24 21:35 Temperature 98.1 F Pulse Rate 79 73 Pulse Rate [Pulse Oximeter] 82 Respiratory Rate 20 Blood Pressure Blood Pressure [Ri ght Upper Arm] 180/109 H Pulse Oximetry 98 98 97 Oxygen Delivery Me thod Room Air 12/07/24 21:39 12/07/24 21:45 12/07/24 22:00 Temperature Pulse Rate 79 78 75 Pulse Rate [Pulse Oximeter] Respiratory Rate Blood Pressure 189/106 H Blood Pressure [Ri ght Upper Arm] Pulse Oximetry 97 96 96 Oxygen Delivery Me thod 12/07/24 22:03 12/07/24 22:15 Temperature Pulse Rate 76 67 Pulse Rate [Pulse Oximeter] Respiratory Rate Blood Pressure 197/106 H Blood Pressure [Ri ght Upper Arm] Pulse Oximetry 96 96 Oxygen Delivery Me thod Course Vital Signs Vital signs: Initial Vital Signs Temperature 98.1 F 12/07/24 20:52 Temperature Source Oral 12/07/24 20:52 Pulse Rate 82 12/07/24 20:52 Respiratory Rate 20 12/07/24 20:52 Blood Pressure 180/109 H 12/07/24 20:52 Blood Pressure Mean 132 H 12/07/24 20:52 Pulse Oximetry 98 12/07/24 20:52 Oxygen Delivery Method Room Air 12/07/24 20:52 Vital Signs Temperature 98.1 F 12/07/24 20:52 Pulse Rate 82 12/07/24 20:52 Respiratory Rate 20 12/07/24 20:52 Blood Pressure 180/109 H 12/07/24 20:52 Pulse Oximetry 98 12/07/24 20:52 Oxygen Delivery Method Room Air 12/07/24 20:52 Temperature 98.1 F 12/07/24 20:52 Pulse Rate 67 12/07/24 22:15 Respiratory Rate 20 12/07/24 20:52 Blood Pressure 197/106 H 12/07/24 22:03 Pulse Oximetry 96 12/07/24 22:15 Oxygen Delivery Method Room Air 12/07/24 20:52 Medications Administered Medications: Generic Name Dose Route Start Last Admin Trade Name Anton PRN Reason Stop Dose Admin Ketorolac Tromethamine 15 mg 12/07/24 21:06 12/07/24 21:31 Ketorolac 15 Mg/Ml Inj IVP 12/07/24 21:07 15 mg ONCE ONE Administration Morphine Sulfate 4 mg 12/07/24 21:06 12/07/24 21:33 Morphine 4 Mg/Ml Inj IVP 12/07/24 21:07 4 mg ONCE ONE Administration Medical Decision Making MDM Narrative Medical decision making narrative: Patient is a 34-year-old male presenting flank pain. The differential diagnosis of flank pain including vascular causes such as aortic aneurysm, renal vascular issues, aortic dissection, mesenteric ischemia, nephrolithiasis, ureter stricture, pyelonephritis, along with several other GI and gynecological/ causes. Concerning his history this is most likely related to his kidney stone. With his stable vital signs and aortic dissection or aortic aneurysm seems unlikely. He is vital signs are otherwise stable a pyelonephritis seems unlikely. Will order urinalysis though to make sure he does not have an infected kidney stone. I spoke to about repeat imaging versus pain management. I explained that considering this is very similar to his previous kidney stone pain I find it very unlikely a CT scan would change our management and is most likely unnecessary radiation considering he has had multiple CTs in the past few months. At this time he is agreeable to not doing a repeat CT scan instead will treat him with IV pain medication to take off the edge. Urinalysis shows no clear signs of UTI. His pain has improved at this time. At this time I believe he is safe for discharge with follow-up with his urologist. He is agreeable to this plan. I will prescribe them Toradol and oxycodone via [facility]. Lab Data Labs: Lab Results 12/07/24 Range/Units 21:39 Urine Color Yellow (Yellow) Urine Appearance Clear (Clear) Urine pH 6.0 (5.0-8.5) Ur Specific [place] >= 1.030 (1.000-1.030) Urine Protein Trace A (Negative) Urine Glucose (UA) Negative (Negative) Urine Ketones Negative (Negative) Urine Blood 3+ A (Negative) Urine Nitrite Negative (Negative) Urine Bilirubin Negative (Negative) Urine Urobilinogen 0.2 (0.2-1.0) Ur Leukocyte Esterase Negative (Negative) Urine RBC 10-25 A (0-2) Urine WBC 0-2 (0-5) Ur Squamous Epith Cells Few (None-Few) Urine Bacteria Few A (None) Fine Granular Casts Few A (None) Urine Yeast Few A (None) Discharge Plan Discharge Clinical Impression: Calculus of kidney Patient Disposition: Home, Self-Care Condition: Improved Instructions: Kidney Stones (ED) Additional Instructions: scientific laboratory supervisor your Toradol and oxycodone from [facility]. While taking Toradol do not use other NSAIDs such as naproxen or ibuprofen. If you need more oxycodone for pain management he will need to follow up with the primary care provider or urologist as we will not be able to prescribe further narcotics via the emergency department. Prescriptions: No Action No Known Home Medications Follow Up/Referrals: Provider,Not a Local [Primary Care Provider] - Stand Alone Forms: [place] Info Instructions
[2024-12-07] MEDS: KETOROLAC 15 MG/ML inj IVP (21:31)
--- OUTSIDE RECORDS SUMMARY | 2024-12-07 21:31 | XMS_ITS | Clinical Summary ---
Author Organization [facility] Address [address] [place] [address] Care Team Providers Care Supervisor Broadloom Name Role Phone Kenzie Rivera NP Primary Care Provider [phone] Allergies No known active allergies Medications lisinopril-hydr [...] Type Department Care Team Description 11/03/[address] [facility] [address] [place] [address] Arline Sawyer NP Refill Request (cpap rx) [...] on file Legal Sex Male 5:25 AM HOG SAWYER Gender Identity Not on file Sexual Orientation Not on file 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 file Not on file Not on file Obstetrics History Last Filed Vital Signs Vital Sign Reading Time Taken Comments Blood Pressure 138/80 11/03/2023 1:01 PM HOG SAWYER Pulse 102 11/03/2023 1:01 PM HOG SAWYER Temperature 36.9 C (98.4 F) 10/23/2019 7:59 AM HOG SAWYER Respiratory Rate 16 11/03/2023 1:01 PM HOG SAWYER Oxygen Saturation 98% 11/03/2023 1:01 PM HOG SAWYER Inhaled Oxygen Concentration - - Weight 179.6 kg (396 lb) 11/03/2023 1:01 PM HOG SAWYER Height 185.4 cm (6' 1) 11/03/2023 1:01 PM HOG SAWYER Body Mass Index 52.25 11/03/2023 1:01 PM HOG SAWYER Plan of Treatment Health Maintenance Due Date [...] this topic Insurance [employer] Care Teams Supervisor Broadloom Relationship Specialty Start Date End Date Kenzie Rivera NP [address] [place] [address] PCP - General Nurse Practitioner - Family 11/03/23
--- OUTSIDE RECORDS SUMMARY | 2024-12-07 21:31 | XMS_ITS | Encounter Summary ---
Author Organization [facility] Address [address] [place] [address] Care Team Providers Care Retanned Leather Roller Name Role Phone Elsewhere, Pcp Primary Care Provider Unavailabl e Reason for Referral * Outpatient (Routine) - Authorized Specialty Diagnoses / Procedures Referred By Sharif mathew Referred To Contact Anesthesiology Diagnoses Ureterolithiasis Cb Saucedo M.D., M.P.H. 200 [place] [address] Phone: tel: fax: [facility] Referral ID Status Reason Start Date Expiration Date V isits Requested Visits Authorized [id number] Authorized 11/22/2024 05/24/2026 1 1 [facility] Reason for Visit * Outpatient (Routine) - Closed Specialty Diagnoses / Procedures Referred By Sharif mathew Referred To Contact Urology Diagnoses Ureterolithiasis Reema Cedeno P.A.-C., M.S. 200 [place] [address] Phone: tel: fax: [facility] Referral ID Status Reason Start Date Expiration Date Visits Re quested Visits Authorized [id number] Closed 11/03/2024 05/05/2026 1 1 Encounter Details Date Type Department Care Team (Latest Contact Info) Description 11/22/2024 3:00 PM [facility] Comprehensive Visit Department of Urology in [place], [place] [address] [place] [phone] Cb Saucedo M.D., M.P.H. [address] [place] [address] [place] [phone] Ureterolithiasis (Primary Dx); Pain Flank Social History Tobacco Use Types Packs/Day Years Used Date Smoking Tobacco: Never Alcohol Use Standard Drinks/Week Comments Not Currently 0 (1 standard drink = 0.6 oz pur e alcohol) [facility] Utilities Answer Date Recorded In the past 12 months has th e [employer], gas, oil, or water company threatened to [...] your living situation today? I have a [facility] place to live 11/21/2024 Sex and Gender Information Value Date Recorded Sex Assigned at Male 11/21/2024 8:18 PM [facility] Legal Sex Male 10:27 AM [facility] Gender Identity Male 11/21/2024 8:18 PM [facility] Sexual Orientation Straight 11/21/2024 8: 18 PM [facility] documented as of this encounter Consult Notes * Christina Hoskins APRN, C.N.P. - 11/22/2024 3:00 PM CST REFERRAL SOURCE The patient is being seen in consultation at the request of Reema Cedeno P.A.-C., M.S. [address] [place] [phone] REASON FOR CONSULT Nephrolithiasis HISTORY OF PRESENT [...] components: No results found for: URINEVOLUME, LABPH, [id number], CALCIUMUR, [id number], [id number], [id number], [id number], [id number] Crystal supersaturations: No results found for: CAOXY24, LABBRUS, [id number], URICACIDSAT, NAURATE Urinalysis Lower Urinary Symptoms Lower [...] Christina Hoskins APRN, C.N.P. 11/22/2024 2:24 PM [facility] [1] No past medical history on file. [2] No past surgical history on file. [3] No Known Allergies [4] No family history on file. Cosigned by Cb Saucedo M.D., M.P.H. at 11/22/2024 4:23 PM [facility] Associated attestation - Cb Saucedo M.D., M.P.H. - 11/22/2024 4:23 PM [facility] I personally saw the patient on the [...] (Latest Contact Info) Description 12/17/2024 3:40 PM [facility] Appointment Department of Laboratory Medicine in [address] [phone] Cb Saucedo M.D., M.P.H. [address] [place] [phone] 12/20/2024 1:00 PM [facility] Appointment Department of Radiology in [address] [phone] Cb Saucedo M.D., M.P.H. [address] [place] [phone] Discharge Disposition: Home or Self Care 12/28/2024 3:00 PM CDT Clinical Communication Virtual Review in [place], [place] 200 [place] [address] 12/29/2024 10:45 AM CDT Comprehensive Visit Preoperative Evaluation Center in [place], [place] [address] [place] [phone] Cb Saucedo M.D., M.P.H. [address] [place] [phone] 12/30/2024 10:44 AM CDT Hospital Encounter Outpatient Procedure Center in [address] [phone] Shlomo Bradshaw M.D., M.S. [address] [place] [phone] 12/30/2024 10:44 AM CDT - 12/30/2024 12:29 PM CDT Surgery Outpatient Procedure Center in [address] [phone] Shlomo Bradshaw M.D., M.S. [address] [place] [phone] URETEROSCOPY WITH LASER LITHOTRIPSY, possible multiple trips to the operating room in 90 days, proceed as indicated Scheduled Procedures Name Priority Associated Diagnoses Date/Ti fl URETEROSCOPY WITH LASER LITHOTRIPSY Ureterolithiasis 12/30/2024 10:44 AM CDT STENT PLACEMENT - INTERNAL Ureterolithiasis 12/30/2024 10:44 AM CDT Scheduled Referrals Name Type Priority Associated Diagnoses Order Schedule Preoperative Evaluation JESSE consult (clinic) Outpatient Referral Routine Ureterolithiasis 1 Occurrences starting 11/22/2024 until 02/19/2026 documented as of this encounter Visit Diagnoses Diagnosis Ureterolithiasis- Primary Pain Flank Ureterolithiasis- Primary Ureterolithiasis documented in this encounter Care Teams Retanned Leather Roller Relationship Specialty Start Date End Date Elsewhere, Pcp PCP - General Internal Medicine 11/03/24 documented as of this encounter
--- OUTSIDE RECORDS SUMMARY | 2024-12-07 21:31 | XMS_ITS | Clinical Summary ---
Author Organization [facility] Address [address] [place] [address] Care Team Providers Care Banking Representative Name Role Phone Elsewhere, Pcp Primary Care Provider Unavailabl e Source Comments Patient records contain information from all sites at [facility]. For routine questions regarding patient records, call [phone] during business hours, M-F 8:00 AM - 5:00 PM Central Time. Record requests for emergency care only can be directed to [phone] at any time.[facility] Allergies No known active allergies Medications [...] 11/25/2024 Orders Only Department of Urology in [place], [place] [address] [place] [address] Cb Saucedo M.D., M.P.H. Ureterolithiasis (Primary Dx) 11/22/2024 3:00 PM FIBER TECHNICIAN Comprehensive Visit Department of Urology in [place], [place] [address] [place] [address] Cb Saucedo M.D., M.P.H. Ureterolithiasis (Primary Dx); Pain Flank 11/03/2024 10:27 AM FIBER TECHNICIAN - 11/03/2024 1:55 PM FIBER TECHNICIAN Emergency [facility] Emergency Department [address] [place] [phone] Reema Cedeno P.A.-C., M.S. Ureterolithiasis (Primary Dx) Discharge Disposition: Home or Self Care from Last 3 Months Social History Tobacco Use Types Packs/Day Years Used Date Smoking Tobacco: Never Tobacco Cessation:Counseling Given: Not Answered Alcohol Use Standard Drinks/Week Comments Not Currently 0 (1 standard drink = 0.6 oz pur e alcohol) [facility] [employer] Answer Date Recorded In the past 12 months has e [employer], gas, oil, or water [employer] threatened to shut off services in [...] your living situation today? I have a [facility] place to live 11/21/2024 Sex and Gender Information Value Date Recorded Sex Assigned at Male 11/21/2024 8:18 PM FIBER TECHNICIAN Legal Sex Male 10:27 AM FIBER TECHNICIAN Gender Identity Male 11/21/2024 8:18 PM FIBER TECHNICIAN Sexual Orientation Straight 11/21/2024 8: 18 PM FIBER TECHNICIAN Last Filed Vital Signs Vital Sign Reading Time Taken Comments Blood Pressure 165/97 11/03/2024 1:45 PM FIBER TECHNICIAN Pulse 73 11/03/2024 1:45 PM FIBER TECHNICIAN Temperature 36.8 C (98.2 F) 11/03/2024 10:36 AM FIBER TECHNICIAN Respiratory Rate 20 11/03/2024 10:36 AM FIBER TECHNICIAN Oxygen Saturation 98% 11/03/2024 1:45 PM FIBER TECHNICIAN Inhaled Oxygen Concentration - - Weight 192 kg (423 lb 15.1 oz) 11/03/2024 10:29 AM FIBER TECHNICIAN Height - - Body Mass Index - - Plan of Treatment Upcoming Encounters Date Type Department Care Team (Latest Contact Info) Description 12/17/2024 3:40 PM FIBER TECHNICIAN Appointment Department of Laboratory Medicine in [address] [phone] Cb Saucedo M.D., M.P.H. [address] [place] [phone] 12/20/2024 1:00 PM FIBER TECHNICIAN Appointment Department of Radiology in [address] [phone] Cb Saucedo M.D., M.P.H. [address] [place] [phone] Discharge Disposition: Home or Self Care 12/28/2024 3:00 PM CDT Clinical Communication Virtual Review in [place], [place] 200 [place] [phone] 12/29/2024 10:45 AM CDT Comprehensive Visit Preoperative Evaluation Center in [place], [place] [address] [place] [phone] Cb Saucedo M.D., M.P.H. [address] [place] [phone] 12/30/2024 10:44 AM CDT Hospital Encounter Outpatient Procedure Center in [place], [place] [address] [place] [phone] Shlomo Bradshaw M.D., M.S. [address] [place] [phone] 12/30/2024 10:44 AM CDT - 12/30/2024 12:29 PM CDT Surgery Outpatient Procedure Center in [place], [place] [address] [place] [phone] Shlomo Bradshaw M.D., M.S. [address] [place] [phone] URETEROSCOPY WITH LASER LITHOTRIPSY, possible multiple trips [...] Comments LACTATE, B/P STAT 11/03/2024 11:39 AM FIBER TECHNICIAN BASIC METABOLIC PANEL, S/P STAT 11/03/2024 11:39 AM FIBER TECHNICIAN CBC WITH DIFFERENTIAL, B STAT 11/03/2024 11:39 AM FIBER TECHNICIAN HC URINALYSIS AUTO WO MICRO Routine 11/03/2024 11:31 AM FIBER TECHNICIAN DIPSTICK, U STAT 11/03/2024 11:28 AM FIBER TECHNICIAN OSMOLALITY, U STAT 11/03/2024 11:28 AM FIBER TECHNICIAN PH, U STAT 11/03/2024 11:28 AM FIBER TECHNICIAN MICROSCOPIC AUTOMATED STAT 11/03/2024 11:28 AM FIBER TECHNICIAN URINALYSIS WITH MICROSCOPIC STAT 11/03/2024 11:28 AM FIBER TECHNICIAN BACTERIAL CULTURE, AEROBIC + SUSC, URINE STAT 11/03/2024 11:[address] ABDOMEN PELVIS WITHOUT IV CONTRAST RAD - Semiurgent (Fast; most ED patients; some inpatients) 11/03/2024 11:10 AM FIBER TECHNICIAN OUTSIDE CT BODY Routine 11/02/2024 10:05 PM FIBER TECHNICIAN from Last 3 Months Results * (ABNORMAL) CBC with Differential, Blood (11/03/2024 11:39 AM FIBER TECHNICIAN) Hemoglobin 14.8 13.2 - 16.6 g/dL 11/03/2024 11:47 AM FIBER TECHNICIAN STMA Hematocrit 47.4 38.3 - 48.6 % 11/03/2024 11:47 AM FIBER TECHNICIAN STMA Erythrocytes 5.40 4.35 - 5.65 x10(12)/L 11/03/2024 11:47 AM FIBER TECHNICIAN STMA MCV 87.8 78.2 - 97.9 fL 11/03/2024 11:47 AM FIBER TECHNICIAN STMA RBC Distrib Width 13.2 11.8 - 14.5 % 11/03/2024 11:47 AM FIBER TECHNICIAN STMA Platelet Count 239 135 - 317 x10(9)/L 11/03/2024 11:47 AM FIBER TECHNICIAN STMA Leukocytes 9.3 3.4 - 9.6 x10(9)/L 11/03/2024 11:47 AM FIBER TECHNICIAN STMA Neutrophils 6.01 1.56 - 6.45 x10(9)/L 11/03/2024 11:47 AM FIBER TECHNICIAN DHPM Lymphocytes 2.06 0.95 - 3.07 x10(9)/L 11/03/2024 11:47 AM FIBER TECHNICIAN STMA Monocytes 0.92(H) 0.26 - 0.81 x10(9)/L 11/03/2024 11:47 AM FIBER TECHNICIAN STMA Eosinophils 0.25 0.03 - 0.48 x10(9)/L 11/03/2024 11:47 AM FIBER TECHNICIAN STMA Basophils 0.04 0.01 - 0.08 x10(9)/L 11/03/2024 11:47 AM FIBER TECHNICIAN STMA Blood (Blood, Venous) 11/03/2024 11:39 AM FIBER TECHNICIAN 11/03/2024 11:45 AM FIBER TECHNICIAN Wesan S Shango P.A.-C. LAB BLOOD ADD-ON Final Re sult Performing Organization Address City/[facility]/ZIP Co de Phone Number [facility] [address] [place] [address], [facility] 200 [place] [address] [facility] 200 [place] [address] * Lactate (11/03/2024 11:39 AM FIBER TECHNICIAN) Pathologist [facility] Lactate, P 1.9 0.5 - 2.2 mmol/L 11/03/2024 11:57 AM FIBER TECHNICIAN STMA Blood (Blood, Venous) 11/03/2024 11:39 AM FIBER TECHNICIAN 11/03/2024 11:45 AM FIBER TECHNICIAN Jazlyn Bhakta P.A.-C. LAB BLOOD NON ADD-ON Kimberly l Result Performing Organization Address [facility]/ZIP Co de Phone Number [facility] [address] [place] [address], [facility] 200 [place] [address] * (ABNORMAL) Basic Metabolic Panel (11/03/2024 11:39 AM FIBER TECHNICIAN) Pathologist [facility] Potassium, P 3.5(L) 3.6 - 5.2 mmol/L 11/03/2024 12:01 PM FIBER TECHNICIAN STMA Sodium, P 141 135 - 145 mmol/L 11/03/2024 12:01 PM FIBER TECHNICIAN STMA Chloride, P 103 98 - 107 mmol/L 11/03/2024 12:01 PM FIBER TECHNICIAN STMA Bicarbonate, P 28 22 - 29 mmol/L 11/03/2024 12:01 PM FIBER TECHNICIAN STMA Anion Gap, P 10 7 - 15 11/03/2024 12:01 PM FIBER TECHNICIAN STMA BUN (Blood Urea Nitrogen), P 11 8 - 24 mg/dL 11/03/2024 12:01 PM FIBER TECHNICIAN STMA Creatinine 0.96 0.74 - 1.35 mg/dL 11/03/2024 12:01 PM FIBER TECHNICIAN STMA Estimated GFR (eGFR) >90 >=60 mL/min/BSA 11/03/2024 12:01 PM FIBER TECHNICIAN STMA Comment: Estimated GFR calculated using the 2020 CKD_EPI creatinine equation. Calcium, Total, P 9.2 8.6 - 10.0 mg/dL 11/03/2024 12:01 PM FIBER TECHNICIAN STMA Glucose, P 157(H) 70 - 140 mg/dL 11/03/2024 12:01 PM FIBER TECHNICIAN STMA Blood (Blood, Venous) 11/03/2024 11:39 AM FIBER TECHNICIAN 11/03/2024 11:45 AM FIBER TECHNICIAN Jazlyn Bhakta P.A.-C. LAB BLOOD ADD-ON Final Re sult [facility] [address] [place] [address], [facility] 200 [place] [address] * (ABNORMAL) Dipstick, POCT, Urine (11/03/2024 11:31 AM FIBER TECHNICIAN) Glucose, POCT, U Negative Negative mg/dL 11/03/2024 11:33 AM FIBER TECHNICIAN PCED Ketone, POCT, U Negative Negative mg/dL 11/03/2024 11:33 AM FIBER TECHNICIAN PCED Specific Carson, POCT, U 1.025 1.005 - 1.030 11/03/2024 11:33 AM FIBER TECHNICIAN PCED Blood, POCT, U Moderate(A) Negative 11/03/2024 11:33 AM FIBER TECHNICIAN PCED pH, POCT, Urine 6.0 5.0 - 8.0 11/03/2024 11:33 AM FIBER TECHNICIAN PCED Protein, POCT, U Trace(A) Negative mg/dL 11/03/2024 11:33 AM FIBER TECHNICIAN PCED Nitrites, POCT, U Negative Negative 11/03/2024 11:33 AM FIBER TECHNICIAN PCED Leukocytes, POCT, U Negative Negative 11/03/2024 11:33 AM FIBER TECHNICIAN PCED Urine 11/03/2024 11:3 1 AM FIBER TECHNICIAN 11/03/2024 11:34 AM FIBER TECHNICIAN Unknown Provider LAB POCT ORDERABLES - DEVICE Fi nal Result POC [facility] 200 [place] [address], [facility] 200 [place] [address] * (ABNORMAL) Dipstick, Urine (11/03/2024 11:28 AM FIBER TECHNICIAN) Hemoglobin, QL, U Small(A) Negative 11/03/2024 1:13 PM FIBER TECHNICIAN DTL Leukocyte Esterase, U Negative Negative 11/03/2024 1:13 PM FIBER TECHNICIAN DTL Nitrite, U Negative Negative 11/03/2024 1:13 PM FIBER TECHNICIAN DTL Ketone, U Negative Negative mg/dL 11/03/2024 1:13 PM FIBER TECHNICIAN DTL Glucose, U Negative Negative mg/dL 11/03/2024 1:13 PM FIBER TECHNICIAN DTL Urine 11/03/2024 11:2 8 AM FIBER TECHNICIAN 11/03/2024 12:58 PM FIBER TECHNICIAN Jazlyn Butcher.A.-C. LAB URINE ORDERABLES Kimberly l Result Performing Organization Address [facility] Co de Phone Number [facility] [address] [place] [address], [facility] 200 [place] [address] * (ABNORMAL) Microscopic Automated (11/03/2024 11:28 AM FIBER TECHNICIAN) Microscopy Abnormal 11/03/2024 1:13 PM FIBER TECHNICIAN DTL RBC 31-40(A) <3 /hpf 11/03/2024 1:13 PM FIBER TECHNICIAN DTL Dysmorphic RBC <25 <25 % 11/03/2024 1:13 PM FIBER TECHNICIAN DTL WBC 1-3 /hpf 11/03/2024 1:13 PM FIBER TECHNICIAN DTL Comment: ----REFERENCE VALUE---- <4 (Males) <11 (Females) Urine 11/03/2024 11:2 8 AM FIBER TECHNICIAN 11/03/2024 12:58 PM FIBER TECHNICIAN Jazlyn Butcher.A.-C. LAB URINE ORDERABLES Kimberly l Result Performing Organization Address City/[facility] Co de Phone Number [facility] [address] [place] [address] * Bacterial Culture, Aerobic + Susceptibility, Urine (11/03/2024 11:28 AM FIBER TECHNICIAN) Urine Culture Organism present <10,000 cfu/mL, susceptibilities not performed per laboratory criteria. 11/04/2024 11:08 AM FIBER TECHNICIAN DTL Urine (Urine, Straight Catheter) 11/03/2024 11:28 AM FIBER TECHNICIAN 11/03/2024 11:02 PM FIBER TECHNICIAN Comment:Specimen Source Site : Urine Jazlyn GraffC. LAB MICROBIOLOGY - GENERA L ORDERABLES Final Result Performing Organization Address [facility] Co de Phone Number [facility] [address] [place] [address] * pH, Urine (11/03/2024 11:28 AM FIBER TECHNICIAN) pH, U 5.6 4.5 - 8.0 11/03/2024 2:0 6 PM FIBER TECHNICIAN DT Urine 11/03/2024 11:2 8 AM FIBER TECHNICIAN 11/03/2024 12:58 PM FIBER TECHNICIAN Jazlyn GraffCKaty LAB URINE ORDERABLES Kimberly l Result Performing Organization Address City/[facility]/ZIP Co de Phone Number [facility] [address] [place] [address] * Osmolality, Urine (11/03/2024 11:28 AM FIBER TECHNICIAN) Osmolality, U 579 150 - 1150 mOsm/kg 11/03/2024 2:06 PM FIBER TECHNICIAN DTL Urine 11/03/2024 11:2 8 AM FIBER TECHNICIAN 11/03/2024 12:58 PM FIBER TECHNICIAN Jazlyn Bhakta P.A.-C. LAB URINE ORDERABLES Kimberly l Result Performing Organization Address [facility] Co de Phone Number [facility] [address] [place] [address], [facility] DTL [facility] 200 [place] [address] * Urinalysis, with Microscopic: Urine, Straight Catheter (11/03/2024 11:28 AM FIBER TECHNICIAN) Source Urine, Urine, Midstream 11/03/2024 1:23 PM FIBER TECHNICIAN DTL Comment:REVISED RESULTS Color, U Yellow 11/03/2024 12:57 PM FIBER TECHNICIAN DTL Clarity, U Clear 11/03/2024 12:57 PM FIBER TECHNICIAN DTL Protein, U 13 <26 mg/dL 11/03/2024 2:17 PM FIBER TECHNICIAN DTL Protein/Osmol ality 0.22 <0.42 ratio 11/03/2024 2:17 PM FIBER TECHNICIAN DTL Predicted 24 HR Protein, U 227 <229 mg/24 h 11/03/2024 2:17 PM FIBER TECHNICIAN DTL Predicted Range 72-715 mg/24 h 11/03/2024 2:17 PM FIBER TECHNICIAN DTL Urine (Urine, Straight Catheter) 11/03/2024 11:28 AM FIBER TECHNICIAN 11/03/2024 12:57 PM FIBER TECHNICIAN Jazlyn Bhakta P.A.-C. LAB URINE ORDERABLES Kimberly l Result Performing Organization Address City/[facility]/ZIP Co de Phone Number [facility] [address] [place] [address], [facility] DTL [facility] 200 [place] [address] * CT Abdomen Pelvis without IV Contrast (11/03/2024 11:10 AM FIBER TECHNICIAN) Anatomical Region Laterality Modality Abdomen, Pelvis, Abdominal R ST LOS, Abdominal ARZ LOS, Abdominal FLA LOS N/A Computed Tomograp hy, Computed Tomography 11/03/2024 11:1 2 AM FIBER TECHNICIAN Impressions 11/03/2024 11:22 AM FIBER TECHNICIAN 1. 7 mm calculus in the distal left ureter without significant hydronephrosis. 2. Additional tiny nonobstructive left upper pole calyceal tip calculus. Narrative 11/03/2024 11:22 AM FIBER TECHNICIAN EXAM: CT ABDOMEN PELVIS WITHOUT IV CONTRAST [...] WO CON-Outside CT Body (11/02/2024 10:05 PM FIBER TECHNICIAN) Narrative IIMS - 11/04/2024 6:21 AM FIBER TECHNICIAN This order has been created and auto-finalized to support the import of outside images. If available, original interpretation can be found on the Media Tab in Chart Review, in Document Viewer, as an image in QREADS or as an Addendum. If a re-interpretation or overread is required please follow defined workflow. us Provider Not In System IMG CT PROCEDURES Final R esult IITN NA from Last 3 Months Insurance [employer] Care Teams Banking Representative Relationship Specialty Start Date End Date Elsewhere, Pcp PCP - General Internal Medicine 11/03/24
--- OUTSIDE RECORDS SUMMARY | 2024-12-07 21:31 | XMS_ITS | Encounter Summary ---
Author Organization [facility] Address [address] [place] [phone] Care Team Providers Care Assisted Living Coordinator Name Role Phone Elsewhere, Pcp Primary Care Provider Unavailabl e Reason for Referral * MRI/CAT/PET Scan (Routine) - Authorized Specialty Diagnoses / Procedures Referred By Sharif mathew Referred To Contact Radiology Diagnoses Ureterolithiasis Procedures CT Abdomen Pelvis without IV Contrast Cb Saucedo M.D., M.P.H. [address] [place] [phone] Phone: tel: fax: [facility] Region Referral ID Status Reason Start Date Expiration Date V isits Requested Visits Authorized [id number] Authorized 11/25/2024 02/25/2026 1 1 RVISOR MARBLE Encounter Details Date Type Department Care Team (Late st Contact Info) Description 11/25/2024 Orders Only Department of Urology in [place], [place] [address] [place] [phone] Cb Saucedo M.D., M.P.H. [address] [place] [phone] Ureterolithiasis (Primary Dx) Social History Tobacco Use Types Packs/Day Years Used Date Smoking Tobacco: Never Alcohol Use Standard Drinks/Week Comments Not Currently 0 (1 standard drink = 0.6 oz pur e alcohol) [facility] Utilities Answer Date Recorded In the past 12 months has [employer], gas, oil, or water [employer] threatened to shut off services in your [...] your living situation today? [facility] 11/21/2024 Sex and Gender Information Value Date Recorded Sex Assigned at Male 11/21/2024 8:18 PM SUPERVISOR MARBLE Legal Sex Male 10:27 AM SUPERVISOR MARBLE Gender Identity Male 11/21/2024 8:18 PM SUPERVISOR MARBLE Sexual Orientation Straight 11/21/2024 8: 18 PM SUPERVISOR MARBLE documented as of this encounter Plan of Treatment Upcoming Encounters Date Type Department Care Team (Latest Contact Info) Description 12/17/2024 3:40 PM SUPERVISOR MARBLE Appointment Department of Laboratory Medicine in [address] [phone] Cb Saucedo M.D., M.P.H. [address] [place] [phone] 12/20/2024 1:00 PM SUPERVISOR MARBLE Appointment Department of Radiology in [address] [phone] Cb Saucedo M.D., M.P.H. [address] [place] [phone] Discharge Disposition: Home or Self Care 12/28/2024 3:00 PM CDT Clinical Communication Virtual Review in [place], [place] 200 [place] [phone] 12/29/2024 10:45 AM CDT Comprehensive Visit Preoperative Evaluation Center in [place], [place] [address] [place] [phone] Cb Saucedo M.D., M.P.H. [address] [place] [phone] 12/30/2024 10:44 AM CDT Hospital Encounter Outpatient Procedure Center in [place], [place] [address] [place] [phone] Shlomo Bradshaw M.D., M.S. [address] [place] [phone] 12/30/2024 10:44 AM CDT - 12/30/2024 12:29 PM CDT Surgery Outpatient Procedure Center in [place], [place] [address] [place] [phone] Shlomo Bradshaw M.D., M.S. [address] [place] [phone] URETEROSCOPY WITH LASER LITHOTRIPSY, possible multiple trips [...] Ureterolithiasis documented in this encounter Care Teams Assisted Living Coordinator Relationship Specialty Start Date End Date Elsewhere, Pcp PCP - General Internal Medicine 11/03/24 documented as of this encounter
--- OUTSIDE RECORDS SUMMARY | 2024-12-07 21:31 | XMS_ITS | Encounter Summary ---
Author Organization [facility] Address [address] [place] [address] Care Team Providers Care Heat Engineering Teacher Name Role Phone Elsewhere, Pcp Primary Care Provider Unavailabl e Reason for Referral * Outpatient (Routine) - Closed Specialty Diagnoses / Procedures Referred By Sharif mathew Referred To Contact Urology Diagnoses Ureterolithiasis Reema Cedeno P.A.-C., M.S. [address] [place] [phone] Phone: tel: fax: [facility] Referral ID Status Reason Start Date Expiration Date Visits Re quested Visits Authorized [id number] Closed 11/03/2024 05/05/2026 1 1 AL PRESIDENT Reason for Visit * Reason Comments Flank Pain Encounter Details Date Type Department Care Team (Late st Contact Info) Description 11/03/2024 10:27 AM GLOBAL PRESIDENT - 11/03/2024 1:55 PM GLOBAL PRESIDENT Emergency [facility] Emergency Department [address] [place] [phone] Reema Cedeno P.A.-C., M.S. [address] [place] [phone] Ureterolithiasis (Primary Dx) Discharge Disposition: Home [...] Sex Assigned at Male 11/21/2024 8:18 PM GLOBAL PRESIDENT Legal Sex Male 10:27 AM GLOBAL PRESIDENT Gender Identity Male 11/21/2024 8:18 PM GLOBAL PRESIDENT Sexual Orientation Straight 11/21/2024 8: 18 PM GLOBAL PRESIDENT documented as of this encounter Last Filed Vital Signs Vital Sign Reading Time Taken Comments Blood Pressure 165/97 11/03/2024 1:45 PM GLOBAL PRESIDENT Pulse 73 11/03/2024 1:45 PM GLOBAL PRESIDENT Temperature 36.8 C (98.2 F) 11/03/2024 10:36 AM GLOBAL PRESIDENT Respiratory Rate 20 11/03/2024 10:36 AM GLOBAL PRESIDENT Oxygen Saturation 98% 11/03/2024 1:45 PM GLOBAL PRESIDENT Inhaled Oxygen Concentration - - Weight 192 kg (423 lb 15.1 oz) 11/03/2024 10:29 AM GLOBAL PRESIDENT Height - - Body Mass Index - - documented in this encounter Discharge Instructions * Discharge Instructions* Reema Cedeno P.A.-C., M.S. - 11/03/2024 1:45 PM GLOBAL PRESIDENT You have a 7-8 mm stone. Please [...] inability to urinate, fever, or persistent vomiting. AL PRESIDENT documented in this encounter Medications at Time [...] with: Urology. Reema Cedeno P.A.-C., M.S. 11/03/241808 AL PRESIDENT * Dionicio Garner R.N. - 11/03/2024 10:36 AM CST Patient presents to the ER with pain in the left flank and left lower abdomin. He states that he went to [facility] last night where they found an 8 mm stone in the left kidney. They consulted their Urology department and told if pain gets worse go to an ER again. Dionicio Garner R.N. 11/03/24 1040 AL PRESIDENT documented in this encounter Plan of Treatment Upcoming Encounters Date Type Department Care Team (Latest Contact Info) Description 12/17/2024 3:40 PM GLOBAL PRESIDENT Appointment Department of Laboratory Medicine in [address] [phone] Cb Saucedo M.D., M.P.H. [address] [place] [phone] 12/20/2024 1:00 PM GLOBAL PRESIDENT Appointment Department of Radiology in [address] [phone] Cb Saucedo M.D., M.P.H. [address] [place] [phone] Discharge Disposition: Home or Self Care 12/28/2024 3:00 PM CDT Clinical Communication Virtual Review in [place], [place] 200 [place] [phone] 12/29/2024 10:45 AM CDT Comprehensive Visit Preoperative Evaluation Center in [place], [place] [address] [place] [phone] Cb Saucedo M.D., M.P.H. [address] [place] [phone] 12/30/2024 10:44 AM CDT Hospital Encounter Outpatient Procedure Center in [place], [place] [address] [place] [phone] Shlomo Bradshaw M.D., M.S. [address] [place] [phone] 12/30/2024 10:44 AM CDT - 12/30/2024 12:29 PM CDT Surgery Outpatient Procedure Center in [place], [place] [address] [place] [phone] Shlomo Bradshaw M.D., M.S. [address] [place] [phone] URETEROSCOPY WITH LASER LITHOTRIPSY, possible multiple trips [...] WITH DIFFERENTIAL, B STAT 11/03/2024 11:39 AM GLOBAL PRESIDENT LACTATE, B/P STAT 11/03/2024 11:39 AM GLOBAL PRESIDENT BASIC METABOLIC PANEL, S/P STAT 11/03/2024 11:39 AM GLOBAL PRESIDENT HC URINALYSIS AUTO WO MICRO Routine 11/03/2024 11:31 AM GLOBAL PRESIDENT DIPSTICK, U STAT 11/03/2024 11:28 AM GLOBAL PRESIDENT MICROSCOPIC AUTOMATED STAT 11/03/2024 11:28 AM GLOBAL PRESIDENT BACTERIAL CULTURE, AEROBIC + SUSC, URINE STAT 11/03/2024 11:28 AM GLOBAL PRESIDENT PH, U STAT 11/03/2024 11:28 AM GLOBAL PRESIDENT OSMOLALITY, U STAT 11/03/2024 11:28 AM GLOBAL PRESIDENT URINALYSIS WITH MICROSCOPIC STAT 11/03/2024 11:[address] ABDOMEN PELVIS WITHOUT IV CONTRAST RAD - Semiurgent (Fast; most ED patients; some inpatients) 11/03/2024 11:10 AM GLOBAL PRESIDENT documented in this encounter Results * Lactate (11/03/2024 11:39 AM GLOBAL PRESIDENT) Lactate, P 1.9 0.5 - 2.2 mmol/L 11/03/2024 11:57 AM GLOBAL PRESIDENT STMA Blood (Blood, Venous) 11/03/2024 11:39 AM GLOBAL PRESIDENT 11/03/2024 11:45 AM GLOBAL PRESIDENT Jazlyn Bhakta P.A.-C. LAB BLOOD NON ADD-ON Kimberly l Result [facility] [address] [place] [address], [place] [facility] [address] [place] [address] * (ABNORMAL) Basic Metabolic Panel (11/03/2024 11:39 AM GLOBAL PRESIDENT) Potassium, P 3.5(L) 3.6 - 5.2 mmol/L 11/03/2024 12:01 PM GLOBAL PRESIDENT STMA Sodium, P 141 135 - 145 mmol/L 11/03/2024 12:01 PM GLOBAL PRESIDENT STMA Chloride, P 103 98 - 107 mmol/L 11/03/2024 12:01 PM GLOBAL PRESIDENT STMA Bicarbonate, P 28 22 - 29 mmol/L 11/03/2024 12:01 PM GLOBAL PRESIDENT STMA Anion Gap, P 10 7 - 15 11/03/2024 12:01 PM GLOBAL PRESIDENT STMA BUN (Blood Urea Nitrogen), P 11 8 - 24 mg/dL 11/03/2024 12:01 PM GLOBAL PRESIDENT STMA Creatinine 0.96 0.74 - 1.35 mg/dL 11/03/2024 12:01 PM GLOBAL PRESIDENT STMA Estimated GFR (eGFR) >90 >=60 mL/min/BSA 11/03/2024 12:01 PM GLOBAL PRESIDENT STMA Comment: Estimated GFR calculated using the 2020 CKD_EPI creatinine equation. Calcium, Total, P 9.2 8.6 - 10.0 mg/dL 11/03/2024 12:01 PM GLOBAL PRESIDENT STMA Glucose, P 157(H) 70 - 140 mg/dL 11/03/2024 12:01 PM GLOBAL PRESIDENT STMA Blood (Blood, Venous) 11/03/2024 11:39 AM GLOBAL PRESIDENT 11/03/2024 11:45 AM GLOBAL PRESIDENT Jazlyn Bhakta P.A.-C. LAB BLOOD ADD-ON Final Re sult [facility] 200 [place] [address], [facility] [address] [place] [address] * (ABNORMAL) CBC with Differential, Blood (11/03/2024 11:39 AM GLOBAL PRESIDENT) Hemoglobin 14.8 13.2 - 16.6 g/dL 11/03/2024 11:47 AM GLOBAL PRESIDENT STMA Hematocrit 47.4 38.3 - 48.6 % 11/03/2024 11:47 AM GLOBAL PRESIDENT STMA Erythrocytes 5.40 4.35 - 5.65 x10(12)/L 11/03/2024 11:47 AM GLOBAL PRESIDENT STMA MCV 87.8 78.2 - 97.9 fL 11/03/2024 11:47 AM GLOBAL PRESIDENT STMA RBC Distrib Width 13.2 11.8 - 14.5 % 11/03/2024 11:47 AM GLOBAL PRESIDENT STMA Platelet Count 239 135 - 317 x10(9)/L 11/03/2024 11:47 AM GLOBAL PRESIDENT STMA Leukocytes 9.3 3.4 - 9.6 x10(9)/L 11/03/2024 11:47 AM GLOBAL PRESIDENT STMA Neutrophils 6.01 1.56 - 6.45 x10(9)/L 11/03/2024 11:47 AM GLOBAL PRESIDENT PM Lymphocytes 2.06 0.95 - 3.07 x10(9)/L 11/03/2024 11:47 AM GLOBAL PRESIDENT STMA Monocytes 0.92(H) 0.26 - 0.81 x10(9)/L 11/03/2024 11:47 AM GLOBAL PRESIDENT STMA Eosinophils 0.25 0.03 - 0.48 x10(9)/L 11/03/2024 11:47 AM GLOBAL PRESIDENT STMA Basophils 0.04 0.01 - 0.08 x10(9)/L 11/03/2024 11:47 AM GLOBAL PRESIDENT STMA Blood (Blood, Venous) 11/03/2024 11:39 AM GLOBAL PRESIDENT 11/03/2024 11:45 AM GLOBAL PRESIDENT Jazlyn Bhakta P.A.-C. LAB BLOOD ADD-ON Final Re sult [facility] [address] [place] [address], [facility] STMA [facility] [address] [place], [place] [address] [place] [address] [place] [address] * (ABNORMAL) Dipstick, POCT, Urine (11/03/2024 11:31 AM GLOBAL PRESIDENT) Pathologist [facility] Glucose, POCT, U Negative Negative mg/dL 11/03/2024 11:33 AM GLOBAL PRESIDENT PCED Ketone, POCT, U Negative Negative mg/dL 11/03/2024 11:33 AM GLOBAL PRESIDENT PCED Specific [place], POCT, U 1.025 1.005 - 1.030 11/03/2024 11:33 AM GLOBAL PRESIDENT PCED Blood, POCT, U Moderate(A) Negative 11/03/2024 11:33 AM GLOBAL PRESIDENT PCED pH, POCT, Urine 6.0 5.0 - 8.0 11/03/2024 11:33 AM GLOBAL PRESIDENT PCED Protein, POCT, U Trace(A) Negative mg/dL 11/03/2024 11:33 AM GLOBAL PRESIDENT PCED Nitrites, POCT, U Negative Negative 11/03/2024 11:33 AM GLOBAL PRESIDENT PCED Leukocytes, POCT, U Negative Negative 11/03/2024 11:33 AM GLOBAL PRESIDENT PCED Urine 11/03/2024 11:3 1 AM GLOBAL PRESIDENT 11/03/2024 11:34 AM GLOBAL PRESIDENT us Unknown Provider LAB POCT ORDERABLES - DEVICE Fi nal Result Performing Organization Address [facility] de Phone Number [facility] 200 [place] [address], [facility] PCED [facility] 200 [place] [address] * (ABNORMAL) Dipstick, Urine (11/03/2024 11:28 AM GLOBAL PRESIDENT) Hemoglobin, QL, U Small(A) Negative 11/03/2024 1:13 PM GLOBAL PRESIDENT DTL Leukocyte Esterase, U Negative Negative 11/03/2024 1:13 PM GLOBAL PRESIDENT DTL Nitrite, U Negative Negative 11/03/2024 1:13 PM GLOBAL PRESIDENT DTL Ketone, U Negative Negative mg/dL 11/03/2024 1:13 PM GLOBAL PRESIDENT DTL Glucose, U Negative Negative mg/dL 11/03/2024 1:13 PM GLOBAL PRESIDENT DTL Urine 11/03/2024 11:2 8 AM GLOBAL PRESIDENT 11/03/2024 12:58 PM GLOBAL PRESIDENT us Jazlyn Bhakta P.A.-C. LAB URINE ORDERABLES Kimberly l Result Performing Organization Address [facility] Co de Phone Number [facility] 200 [place] [address], [facility] DTL [facility] 200 [place] [address] * Osmolality, Urine (11/03/2024 11:28 AM GLOBAL PRESIDENT) Osmolality, U 579 150 - 1150 mOsm/kg 11/03/2024 2:06 PM GLOBAL PRESIDENT DTL Urine 11/03/2024 11:2 8 AM GLOBAL PRESIDENT 11/03/2024 12:58 PM GLOBAL PRESIDENT Jazlyn Bhakta P.A.-C. LAB URINE ORDERABLES Kimberly l Result [facility] 200 [place] [address], [facility] 200 [place] [address] * pH, Urine (11/03/2024 11:28 AM GLOBAL PRESIDENT) pH, U 5.6 4.5 - 8.0 11/03/2024 2:0 6 PM GLOBAL PRESIDENT DTL Urine 11/03/2024 11:2 8 AM GLOBAL PRESIDENT 11/03/2024 12:58 PM GLOBAL PRESIDENT Jazlyn Bhakta P.A.-C. LAB URINE ORDERABLES Kimberly l Result Performing Organization Address [facility] Co de Phone Number [facility] 200 [place] [address], [facility] 200 [place] [address] * (ABNORMAL) Microscopic Automated (11/03/2024 11:28 AM GLOBAL PRESIDENT) Microscopy Abnormal 11/03/2024 1:13 PM GLOBAL PRESIDENT DTL RBC 31-40(A) <3 /hpf 11/03/2024 1:13 PM GLOBAL PRESIDENT DTL Dysmorphic RBC <25 <25 % 11/03/2024 1:13 PM GLOBAL PRESIDENT DTL WBC 1-3 /hpf 11/03/2024 1:13 PM GLOBAL PRESIDENT DTL Comment: ----REFERENCE VALUE---- <4 (Males) <11 (Females) Urine 11/03/2024 11:2 8 AM GLOBAL PRESIDENT 11/03/2024 12:58 PM GLOBAL PRESIDENT Jazlyn Bhakta P.A.-C. LAB URINE ORDERABLES Kimberly l Result Performing Organization Address [facility] Co de Phone Number [facility] [address] [place] [address], [facility] 200 [place] [address] * Bacterial Culture, Aerobic + Susceptibility, Urine (11/03/2024 11:28 AM GLOBAL PRESIDENT) Urine Culture Organism present <10,000 cfu/mL, susceptibilities not performed per laboratory criteria. 11/04/2024 11:08 AM GLOBAL PRESIDENT DTL Urine (Urine, Straight Catheter) 11/03/2024 11:28 AM GLOBAL PRESIDENT 11/03/2024 11:02 PM GLOBAL PRESIDENT Comment:Specimen Source Site : Urine Jazlyn Bhakta P.A.-C. LAB MICROBIOLOGY - GENERA L ORDERABLES Final Result Performing Organization Address [facility] de Phone Number [facility] [address] [place] [address], [facility] 200 [place] [address] * Urinalysis, with Microscopic: Urine, Straight Catheter (11/03/2024 11:28 AM GLOBAL PRESIDENT) Source Urine, Urine, Midstream 11/03/2024 1:23 PM GLOBAL PRESIDENT DTL Comment:REVISED RESULTS Color, U Yellow 11/03/2024 12:57 PM GLOBAL PRESIDENT DTL Clarity, U Clear 11/03/2024 12:57 PM GLOBAL PRESIDENT DTL Protein, U 13 <26 mg/dL 11/03/2024 2:17 PM GLOBAL PRESIDENT DTL Protein/Osmol ality 0.22 <0.42 ratio 11/03/2024 2:17 PM GLOBAL PRESIDENT DTL Predicted 24 HR Protein, U 227 <229 mg/24 h 11/03/2024 2:17 PM GLOBAL PRESIDENT DTL Predicted Range 72-715 mg/24 h 11/03/2024 2:17 PM GLOBAL PRESIDENT DTL Urine (Urine, Straight Catheter) 11/03/2024 11:28 AM GLOBAL PRESIDENT 11/03/2024 12:57 PM GLOBAL PRESIDENT Jazlyn Bhakta P.A.-C. LAB URINE ORDERABLES Kimberly taylor Result [facility] [address] [place] [address], [facility] [address] [place] [address] * CT Abdomen Pelvis without IV Contrast (11/03/2024 11:10 AM GLOBAL PRESIDENT) Anatomical Region Laterality Modality Abdomen, Pelvis, Abdominal R ST LOS, Abdominal ARZ LOS, Abdominal FLA LOS N/A Computed Tomograp hy, Computed Tomography 11/03/2024 11:1 2 AM GLOBAL PRESIDENT Impressions 11/03/2024 11:22 AM GLOBAL PRESIDENT 1. 7 mm calculus in the distal left ureter without significant hydronephrosis. 2. Additional tiny nonobstructive left upper pole calyceal tip calculus. Narrative 11/03/2024 11:22 AM GLOBAL PRESIDENT EXAM: CT ABDOMEN PELVIS WITHOUT IV CONTRAST [...] Ureterolithiasis documented in this encounter Care Teams Heat Engineering Teacher Relationship Specialty Start Date End Date Elsewhere, Pcp PCP - General Internal Medicine 11/03/24 documented as of this encounter
[2024-12-07] MEDS: MORPHINE 4 MG/ML INJ IVP (21:33)
[2024-12-07 21:44] LABS: Appearance Urine Clear (Clear); Bilirubin Urine Negative (Negative); Blood Urine 3+ (Negative); Color Urine Yellow (Yellow); Glucose Urine Negative (Negative); Ketones Urine Negative (Negative); Leukocyte Esterase Urine Negative (Negative); Nitrite Urine Negative (Negative); Protein Urine Trace (Negative); Specific Gravity Urine >= 1.030 (1.000-1.030); Urobilinogen Urine 0.2 (0.2-1.0)
[2024-12-07 22:24] LABS: Bacteria Urine Few; Fine Granular Casts Urine Few; Squamous Epithelial Cell Urine Few (None-Few); WBC Urine 0-2 (0-5)
== END 2024-12-07 22:47 | disposition home or self-care (01) ==
PROVIDERS: Emergency Provider Student in an Organized Health Care Education/Training Program
DX: N20.0 Calculus of kidney (principal)
CPT/HCPCS: 81001; 87086; 96374; 96375; 99283; 99284; J1885; J2270